=== PATIENT | male | born 1990 | race American Indian/Alaskan Native ===

== ENCOUNTER 2016-11-11 23:28 | Emergency (ER) | payer SELFPAY ==
[2016-11-12 00:05] VITALS: BP 143/103
== END 2016-11-12 00:29 | disposition left against medical advice (07) ==
LOC: DL.ED 23:28
DX: Z53.21 Procedure and treatment not carried out due to patient leaving prior to being seen by health care provider (principal)

== ENCOUNTER 2017-06-26 23:39 | Emergency (ER) | payer MEDICAID ==
[2017-06-26 23:50] VITALS: BP 164/105
[2017-06-27] MEDS ORDERED: Famotidine 20 MG/2 ML SDV IVPUSH ONE (00:32)
[2017-06-27] MEDS ORDERED: GI Cocktail Oral Solution 30 ML PO ONE (00:33)
[2017-06-27] MEDS ORDERED: LORazepam 2 MG/ML Syringe IVPUSH ONE (00:55)
[2017-06-27 00:56] LABS: CHLORIDE,CL 103 mmol/L (101-111); SODIUM,NA 137 mmol/L (135-145)
--- NOTE | 2017-06-27 02:59 | EDM.PDOC ---
ED HPI GENERAL MEDICAL PROBLEM - General Chief Complaint: Chest Pain Stated Complaint: CHEST PAIN Time Seen by Provider: 06/27/17 00:20 Source of Information: Reports: Patient History Limitations: Reports: No Limitations - History of Present Illness INITIAL COMMENTS - FREE TEXT/NARRATIVE: ED with girlfriend with c/o of everything hurting, chest, stomach, back and legs. Admits meth use 2 days ago and drinking today. No vomiting. Generalized Pain Score (Numeric/FACES): 8 - Related Data Allergies Allergy/AdvReac Type Severity Reaction Status Date / Time amoxicillin [Amoxicillin] Allergy Cannot Verified 11/11/16 23:56 Remember cephalexin monohydrate Allergy Cannot Verified 11/11/16 23:56 [From Keflex] Remember Penicillins Allergy Cannot Verified 11/11/16 23:56 Remember Home Meds: Home Meds Insulin Aspart [NovoLOG] 10 unit SQ TIDAC 09/02/13 [History] Lisinopril 20 mg PO DAILY 09/02/13 [History] Insulin Detemir [Levemir Flexpen] 50 units SQ DAILY 11/21/13 [History] Metoprolol Tartrate 100 mg PO DAILY 11/21/13 [History] Past Medical History - Past Health History Medical/Surgical History: Denies Medical/Surgical History HEENT History: Reports: Impaired Vision Cardiovascular History: Reports: Hypertension Respiratory History: Reports: Intubation, Previous, Other (See Below) Other Respiratory History: Pt was intubated previously to get him through detox Gastrointestinal History: Reports: Cirrhosis, Gastritis, GERD, GI Bleed, Pancreatitis, PUD Other Gastrointestinal History: varicies Genitourinary History: Reports: Renal Disease Other Genitourinary History: renal disease Musculoskeletal History: Reports: None Neurological History: Reports: None Psychiatric History: Reports: Addiction, Anxiety, Panic Attack Endocrine/Metabolic History: Reports: Diabetes, Type II, IDDM Hematologic History: Reports: Anemia Immunologic History: Reports: None Oncologic (Cancer) History: Reports: None Dermatologic History: Reports: None - Infectious Disease History Infectious Disease History: Reports: Chicken Pox - Past Surgical History GI Surgical History: Reports: Appendectomy, EGD, ERCP, Other (See Below) Musculoskeletal Surgical History: Reports: None Social & Family History - Family History Family Medical History: Noncontributory HEENT: Reports: None Cardiac: Reports: Afib, CAD, Heart Failure, High Cholesterol, Hypertension Other Cardiac Family History: mom's Respiratory: Reports: Asthma, COPD Other Respiratory Family Hisory: grandfather on mom's side. GI: Reports: Cholelithiasis, Cirrhosis, GI bleed, Hepatitis, Jaundice, Pancreatitis : Reports: Diabetic Nephropathy, Dialysis, Renal Disease/Insufficiency Musculoskeletal: Reports: Gout Neurological: Reports: CVA Psychiatric: Reports: Anxiety, Depression Endocrine/Metabolic: Reports: Diabetes, Type I, Diabetes, type II Other Endocrine/Metabolic Family History: Grandpa- Diabetes Type II ; Mother - Diabetes Type I Hematologic: Reports: Anemia - Tobacco Use Smoking Status *Q: Current Every Day Smoker Years of Tobacco use: 12 Packs/Tins Daily: 1 Used Tobacco, but Quit: No Month Tobacco Last Used: november Second Hand Smoke Exposure: Yes - Caffeine Use Caffeine Use: Reports: Coffee, Energy Drinks, Soda - Alcohol Use Days Per Week of Alcohol Use: 1 Number of Drinks Per Day: 2 Total Drinks Per Week: 2 - Recreational Drug Use Recreational Drug Use: Yes Drug Use in Last 12 Months: Yes Recreational Drug Type: Reports: Methamphetamine Recreational Drug Use Frequency: Socially Recreational Drug Last Use: meth - Sexual History Sexual History: Reports: Sexually Active, Single Partner - Living Situation & Occupation Living situation: Reports: with Significant Other, with Family Occupation: Employed ED ROS GENERAL - Review of Systems Review Of Systems: See Below Constitutional: Reports: No Symptoms HEENT: Reports: No Symptoms Respiratory: Reports: No Symptoms Cardiovascular: Reports: Chest Pain Endocrine: Reports: Fatigue GI/Abdominal: Reports: Abdominal Pain. Denies: Nausea, Vomiting : Reports: No Symptoms Musculoskeletal: Reports: Leg Pain Skin: Reports: No Symptoms Neurological: Reports: No Symptoms Psychiatric: Reports: No Symptoms ED EXAM, GENERAL - Physical Exam Exam: See Below Exam Limited By: No Limitations General Appearance: Alert, Anxious, Obese Eye Exam: Bilateral Eye: EOMI, PERRL (6mm) Ears: Normal External Exam Throat/Mouth: Normal Inspection, Inflammation. No: Normal Lips (pierced) Head: Normocephalic Neck: Full Range of Motion Respiratory/Chest: No Respiratory Distress, Lungs Clear Cardiovascular: Normal Peripheral Pulses GI/Abdominal: Normal Bowel Sounds, Soft, Tender (epigastric) Back Exam: Normal Inspection Extremities: Normal Inspection, Normal Range of Motion Neurological: Alert, Oriented Psychiatric: Anxious, Other (darting eye movments, easily startled, poor eye contact, mumbles ) Skin Exam: Warm, Dry, Intact, Normal Color EKG INTERPRETATION Rhythm: NSR Course - Vital Signs Last Recorded V/S: Last Vital Signs Temp 98.6 F 06/26/17 23:49 Pulse 89 06/26/17 23:49 Resp 20 06/26/17 23:49 BP 164/105 H 06/26/17 23:49 Pulse Ox 100 06/26/17 23:49 - Orders/Labs/Meds Orders: Active Orders 24 hr Category Date Time Status EKG Documentation Completion [RC] ROUTINE Care 06/26/17 23:45 Active Glucose [Blood Glucose Check, Bedside] [RC] ONETIME Care 06/27/17 00:54 Active Labs: Laboratory Tests 06/27/17 06/27/17 06/27/17 Range/Units 00:00 00:00 00:52 WBC 9.5 (5.0-10.0) 10^3/uL RBC 5.23 (4.6-6.2) 10^6/uL Hgb 15.9 (14.0-18.0) g/dL Hct 45.5 (40.0-54.0) % MCV 87.0 (80-100) fL MCH 30.4 (27.0-34.0) pg MCHC 34.9 (33.0-35.0) g/dL Plt Count 231 (150-450) 10^3/uL Neut % (Auto) 64.3 (42.2-75.2) % Lymph % (Auto) 27.7 (20.5-50.1) % [place] % (Auto) 7.2 (2-8) % Eos % (Auto) 0.7 L (1.0-3.0) % Baso % (Auto) 0.1 (0.0-1.0) % Sodium 137 (135-145) mmol/L Potassium 3.4 L (3.6-5.0) mmol/L Chloride 103 (101-111) mmol/L Carbon Dioxide 23.0 (21.0-31.0) mmol/L Anion Gap 14.4 BUN 6 L (7-18) mg/dL Creatinine 0.7 (0.6-1.3) mg/dL Est Cr Clr Drug Dosing 177.56 mL/min Estimated GFR (MDRD) > 60 BUN/Creatinine Ratio 8.57 Glucose 215 H (74-105) mg/dL POC Glucose (70-105) mg/dl Calcium 9.6 (8.4-10.2) mg/dl Total Bilirubin 0.7 (0.2-1.0) mg/dL AST 16 (10-42) IU/L ALT 10 (10-60) IU/L Alkaline Phosphatase 78 (42-121) IU/L Troponin I < 0.02 (0.00-0.02) ng/ml Total Protein 7.7 (6.7-8.2) g/dl Albumin 4.5 (3.2-5.5) g/dl Globulin 3.2 Albumin/Globulin Ratio 1.41 Amylase 18 L (28-100) U/L Lipase 15 L (22-51) U/L Urine Opiates Screen Negative (NEGATIVE) Ur Oxycodone Screen Negative (NEGATIVE) Urine Methadone Screen Negative (NEGATIVE) Ur Barbiturates Screen Negative (NEGATIVE) U Tricyclic Antidepress Negative (NEGATIVE) Ur Phencyclidine Scrn Negative (NEGATIVE) Ur Amphetamine Screen Negative (NEGATIVE) U Methamphetamines Scrn Positive H (NEGATIVE) Urine MDMA Screen Negative (NEGATIVE) U Benzodiazepines Scrn Negative (NEGATIVE) Urine Cocaine Screen Negative (NEGATIVE) U Marijuana (THC) Screen Negative (NEGATIVE) 06/27/17 Range/Units 01:04 WBC (5.0-10.0) 10^3/uL RBC (4.6-6.2) 10^6/uL Hgb (14.0-18.0) g/dL Hct (40.0-54.0) % MCV (80-100) fL MCH (27.0-34.0) pg MCHC (33.0-35.0) g/dL Plt Count (150-450) 10^3/uL Neut % (Auto) (42.2-75.2) % Lymph % (Auto) (20.5-50.1) % [place] % (Auto) (2-8) % Eos % (Auto) (1.0-3.0) % Baso % (Auto) (0.0-1.0) % Sodium (135-145) mmol/L Potassium (3.6-5.0) mmol/L Chloride (101-111) mmol/L Carbon Dioxide (21.0-31.0) mmol/L Anion Gap BUN (7-18) mg/dL Creatinine (0.6-1.3) mg/dL Est Cr Clr Drug Dosing mL/min Estimated GFR (MDRD) BUN/Creatinine Ratio Glucose (74-105) mg/dL POC Glucose 197 H (70-105) mg/dl Calcium (8.4-10.2) mg/dl Total Bilirubin (0.2-1.0) mg/dL AST (10-42) IU/L ALT (10-60) IU/L Alkaline Phosphatase (42-121) IU/L Troponin I (0.00-0.02) ng/ml Total Protein (6.7-8.2) g/dl Albumin (3.2-5.5) g/dl Globulin Albumin/Globulin Ratio Amylase (28-100) U/L Lipase (22-51) U/L Urine Opiates Screen (NEGATIVE) Ur Oxycodone Screen (NEGATIVE) Urine Methadone Screen (NEGATIVE) Ur Barbiturates Screen (NEGATIVE) U Tricyclic Antidepress (NEGATIVE) Ur Phencyclidine Scrn (NEGATIVE) Ur Amphetamine Screen (NEGATIVE) U Methamphetamines Scrn (NEGATIVE) Urine MDMA Screen (NEGATIVE) U Benzodiazepines Scrn (NEGATIVE) Urine Cocaine Screen (NEGATIVE) U Marijuana (THC) Screen (NEGATIVE) Meds: Medications Discontinued Medications Generic Name Dose Route Start Last Admin Trade Name Freq PRN Reason Stop Dose Admin Al Hydroxide/Mg Hydroxide 30 ml 06/27/17 00:33 06/27/17 00:38 Gi Cocktail PO 06/27/17 00:34 30 ml ONETIME ONE Administration Famotidine 20 mg 06/27/17 00:32 06/27/17 00:38 Pepcid IVPUSH 06/27/17 00:33 20 mg ONETIME ONE Administration Lorazepam 1 mg 06/27/17 00:55 06/27/17 01:01 Ativan IVPUSH 06/27/17 00:56 1 mg ONETIME ONE Administration - Re-Assessments/Exams Free Text/Narrative Re-Assessment/Exam: Pacing in room on admission, frequent glancing in to mirror , Calmer at discharge, able to sit with girlfriend. Paranoid appearance. Non threatening. Departure - Departure Time of Disposition: 01:20 Disposition: Home, Self-Care 01 Condition: Fair Clinical Impression: Anxiety, Paranoia, Methamphetamine abuse Abdominal pain Qualifiers: Abdominal location: generalized Qualified Code(s): R10.84 - Generalized abdominal pain - Discharge Information Instructions: Stimulant Use Disorder-Methamphetamines Forms: ED Department Discharge Additional Instructions: Stop using drugs bland diet increase fluid intake no alcohol - My Orders Last 24 Hours: My Active Orders 06/26/17 23:45 EKG Documentation Completion [RC] ROUTINE 06/27/17 00:54 Glucose [Blood Glucose Check, Bedside] [RC] ONETIME - Assessment/Plan Last 24 Hours: My Active Orders 06/26/17 23:45 EKG Documentation Completion [RC] ROUTINE 06/27/17 00:54 Glucose [Blood Glucose Check, Bedside] [RC] ONETIME
--- NOTE | 2017-07-01 10:50 | EKG ---
06/26/2017 - MAGALYS KO - FINDINGS: I reviewed the EKG and agree with the machine's reading. [facility] /[id number]
== END 2017-06-27 01:20 | disposition home or self-care (01) ==
LOC: DL.ED 23:39
DX: F41.9 Anxiety disorder, unspecified (principal); F15.10 Other stimulant abuse, uncomplicated; F22 Delusional disorders; R10.84 Generalized abdominal pain; F17.210 Nicotine dependence, cigarettes, uncomplicated; E11.9 Type 2 diabetes mellitus without complications; I10 Essential (primary) hypertension; Z88.1 Allergy status to other antibiotic agents; Z88.0 Allergy status to penicillin; Z79.4 Long term (current) use of insulin; Z79.899 Other long term (current) drug therapy
CPT/HCPCS: 36415; 80053; 80305; 82150; 82962; 83690; 84484; 85025; 93005; 96374; 96375; 99283; A9270; J2060; S0028

== ENCOUNTER 2017-10-18 23:02 | Emergency (ER) | payer SELFPAY ==
[2017-10-18 23:18] VITALS: BP 151/102
[2017-10-18] MEDS ORDERED: Pantoprazole 40 MG in Sodium Chloride 0.9% 100 ML IV SCH (23:45)
[2017-10-18] MEDS ORDERED: Octreotide 500 MCG in Sodium Chloride 0.9% 250 ML IV SCH (23:45)
[2017-10-18] MEDS ORDERED: Octreotide 100 MCG/ML SDV IVPUSH ONE (23:48)
[2017-10-18] MEDS ORDERED: Ondansetron 8 MG in Sodium Chloride 0.9% 50 ML IV ONE (23:49)
[2017-10-18] MEDS ORDERED: Pantoprazole 40 MG Vial IVPUSH ONE (23:49)
[2017-10-18] MEDS ORDERED: Sodium Chloride 0.9% 1,000 ML IV ONE (23:50)
[2017-10-18 23:54] LABS: CHLORIDE,CL 104 mmol/L (101-111); SODIUM,NA 138 mmol/L (135-145)
[2017-10-18] MEDS ORDERED: LORazepam 2 MG/ML Syringe IVPUSH ONE (23:54)
[2017-10-19] MEDS ORDERED: Ondansetron 4 MG/2 ML SDV IV ONE (00:28)
--- NOTE | 2017-10-19 00:31 | EDM.PDOC ---
ED HPI GENERAL MEDICAL PROBLEM - General Chief Complaint: Drug or Alcohol Abuse Stated Complaint: CHEST PAIN [id number] Time Seen by Provider: 10/18/17 23:35 Source of Information: Reports: Patient, RN, RN Notes Reviewed - History of Present Illness INITIAL COMMENTS - FREE TEXT/NARRATIVE: Pt presents to the ER with c/o vomiting. He states he has not drank alcohol in over 9 months. He states he "fell off the wagon" and has drank for the past three days with the last drink being yesterday. Patient has a history of bleeding esophageal varices. Upon arrival patient is very agitated and consistently vomiting. Pt c/o pain in the abdomen, up through the chest and into the shoulders. Onset: Today, Sudden Left Shoulder Pain Score (Numeric/FACES): 6 - Related Data Allergies Allergy/AdvReac Type Severity Reaction Status Date / Time amoxicillin [Amoxicillin] Allergy Cannot Verified 10/18/17 23:18 Remember cephalexin monohydrate Allergy Cannot Verified 10/18/17 23:18 [From Keflex] Remember Penicillins Allergy Cannot Verified 10/18/17 23:18 Remember Home Meds: Home Meds Insulin Aspart [NovoLOG] 10 unit SQ TIDAC 09/02/13 [History] Lisinopril 20 mg PO DAILY 09/02/13 [History] Insulin Detemir [Levemir Flexpen] 50 units SQ DAILY 11/21/13 [History] Metoprolol Tartrate 100 mg PO DAILY 11/21/13 [History] Past Medical History - Past Health History Medical/Surgical History: Denies Medical/Surgical History HEENT History: Reports: Impaired Vision Cardiovascular History: Reports: Hypertension Respiratory History: Reports: Intubation, Previous, Other (See Below) Other Respiratory History: Pt was intubated previously to get him through detox Gastrointestinal History: Reports: Cirrhosis, Gastritis, GERD, GI Bleed, Pancreatitis, PUD Other Gastrointestinal History: varicies Genitourinary History: Reports: Renal Disease Other Genitourinary History: renal disease Musculoskeletal History: Reports: None Neurological History: Reports: None Psychiatric History: Reports: Addiction, Anxiety, Panic Attack Endocrine/Metabolic History: Reports: Diabetes, Type II, IDDM Hematologic History: Reports: Anemia Immunologic History: Reports: None Oncologic (Cancer) History: Reports: None Dermatologic History: Reports: None - Infectious Disease History Infectious Disease History: Reports: Chicken Pox - Past Surgical History GI Surgical History: Reports: Appendectomy, EGD, ERCP, Other (See Below) Musculoskeletal Surgical History: Reports: None Social & Family History - Family History Family Medical History: Noncontributory HEENT: Reports: None Cardiac: Reports: Afib, CAD, Heart Failure, High Cholesterol, Hypertension Other Cardiac Family History: mom's Respiratory: Reports: Asthma, COPD Other Respiratory Family Hisory: grandfather on mom's side. GI: Reports: Cholelithiasis, Cirrhosis, GI bleed, Hepatitis, Jaundice, Pancreatitis : Reports: Diabetic Nephropathy, Dialysis, Renal Disease/Insufficiency Musculoskeletal: Reports: Gout Neurological: Reports: CVA Psychiatric: Reports: Anxiety, Depression Endocrine/Metabolic: Reports: Diabetes, Type I, Diabetes, type II Other Endocrine/Metabolic Family History: Grandpa- Diabetes Type II ; Mother - Diabetes Type I Hematologic: Reports: Anemia - Tobacco Use Smoking Status *Q: Current Every Day Smoker Years of Tobacco use: 10 Packs/Tins Daily: 0.5 Used Tobacco, but Quit: No Month/Year Tobacco Last Used: november Second Hand Smoke Exposure: Yes - Caffeine Use Caffeine Use: Reports: Coffee, Energy Drinks, Soda - Alcohol Use Days Per Week of Alcohol Use: 1 Number of Drinks Per Day: 2 Total Drinks Per Week: 2 - Recreational Drug Use Recreational Drug Use: Yes Drug Use in Last 12 Months: Yes Recreational Drug Type: Reports: Methamphetamine Other Recreational Drug Type: last use 9 months ago Recreational Drug Use Frequency: Socially Recreational Drug Last Use: meth - Sexual History Sexual History: Reports: Sexually Active, Single Partner - Living Situation & Occupation Living situation: Reports: with Significant Other, with Family Occupation: Employed ED ROS GENERAL - Review of Systems Review Of Systems: ROS reveals no pertinent complaints other than HPI. ED EXAM, GI/ABD - Physical Exam Exam: See Below Exam Limited By: Other (vomiting) General Appearance: Severe Distress, Active Emesis Eyes: Bilateral: Normal Appearance (Injected sclera bilaterally), EOMI Ears: Normal External Exam, Hearing Grossly Normal Nose: Normal Inspection, Normal Mucosa, No Blood Throat/Mouth: Normal Inspection, Normal Lips, Normal Teeth, Normal Gums, Normal Oropharynx, Normal Voice, No Airway Compromise Head: Atraumatic, Normocephalic Neck: Normal Inspection, Supple, Non-Tender, Full Range of Motion Respiratory/Chest: No Respiratory Distress, Lungs Clear, Normal Breath Sounds, No Accessory Muscle Use, Chest Non-Tender Cardiovascular: Normal Peripheral Pulses, Regular Rate, Rhythm, No Edema, No Gallop, No JVD, No Murmur, No Rub, Tachycardia GI/Abdominal Exam: Normal Bowel Sounds, Soft, Tender (Male) Exam: Deferred Rectal (Males) Exam: Deferred Back Exam: Normal Inspection, Full Range of Motion, NT Extremities: Normal Inspection, Normal Range of Motion, Non-Tender, Normal Capillary Refill, No Pedal Edema Neurological: Alert, Oriented, CN II-XII Intact, Normal Cognition, Normal Gait, Normal Reflexes, No Motor/Sensory Deficits Psychiatric: Anxious, Tearful Skin Exam: Warm, Dry, Intact, Normal Color, No Rash Lymphatic: No Adenopathy Course - Vital Signs Last Recorded V/S: Last Vital Signs Temp 98.7 F 10/18/17 23:13 Pulse 127 H 10/18/17 23:13 Resp 24 H 10/18/17 23:13 BP 151/102 H 10/18/17 23:13 Pulse Ox 99 10/18/17 23:13 - Orders/Labs/Meds Orders: Active Orders 24 hr Category Date Time Status DRUG SCREEN URINE BIORAD [URCHEM] Stat Lab 10/18/17 23:34 Ordered UA W/MICROSCOPIC [URIN] Stat Lab 10/18/17 23:34 Ordered Labs: Laboratory Tests 10/18/17 10/18/17 Range/Units 23:30 23:30 WBC 8.1 (5.0-10.0) 10^3/uL RBC 4.70 (4.6-6.2) 10^6/uL Hgb 14.4 D (14.0-18.0) g/dL Hct 41.2 (40.0-54.0) % MCV 87.7 (80-100) fL MCH 30.6 (27.0-34.0) pg MCHC 35.0 (33.0-35.0) g/dL Plt Count 233 (150-450) 10^3/uL Neut % (Auto) 43.5 (42.2-75.2) % Lymph % (Auto) 48.9 (20.5-50.1) % [place] % (Auto) 6.3 (2-8) % Eos % (Auto) 1.1 (1.0-3.0) % Baso % (Auto) 0.2 (0.0-1.0) % Sodium 138 (135-145) mmol/L Potassium 3.4 L (3.6-5.0) mmol/L Chloride 104 (101-111) mmol/L Carbon Dioxide 22.0 (21.0-31.0) mmol/L Anion Gap 15.4 BUN 6 L (7-18) mg/dL Creatinine 0.7 (0.6-1.3) mg/dL Est Cr Clr Drug Dosing 177.56 mL/min Estimated GFR (MDRD) > 60 BUN/Creatinine Ratio 8.57 Glucose 229 H (74-105) mg/dL Calcium 8.6 (8.4-10.2) mg/dl Total Bilirubin 0.6 (0.2-1.0) mg/dL AST 53 H (10-42) IU/L ALT 37 (10-60) IU/L Alkaline Phosphatase 86 (42-121) IU/L Total Protein 7.3 (6.7-8.2) g/dl Albumin 4.2 (3.2-5.5) g/dl Globulin 3.1 Albumin/Globulin Ratio 1.35 Amylase 33 (28-100) U/L Lipase 14 L (22-51) U/L Ethyl Alcohol 45 mg/dL Meds: Medications Discontinued Medications Generic Name Dose Route Start Last Admin Trade Name Freq PRN Reason Stop Dose Admin Octreotide Acetate 500 mcg/ 255 mls @ 12.5 mls/hr 10/18/17 23:45 Sodium Chloride IV ASDIRECTED VINAY Pantoprazole Sodium 40 mg/ 100 mls @ 20 mls/hr 10/18/17 23:45 10/19/17 00:51 Sodium Chloride IV 20 mls/hr .CONTINUOS VINAY Administration Sodium Chloride 1,000 mls @ 999 mls/hr 10/18/17 23:50 10/19/17 00:12 Normal Saline IV 10/19/17 00:50 999 mls/hr .BOLUS ONE Administration Octreotide Acetate 500 mcg/ 255 mls @ 12.5 mls/hr 10/19/17 00:41 10/19/17 00: 58 Sodium Chloride IV 10/19/17 21:04 12.5 mls/hr ONETIME ONE Administration Pantoprazole Sodium 40 mg/ 100 mls @ 20 mls/hr 10/19/17 00:42 10/19/17 00:52 Sodium Chloride IV 10/19/17 05:41 Not Given ONETIME ONE Lorazepam 2 mg 10/18/17 23:54 10/19/17 00:13 Ativan IVPUSH 10/18/17 23:55 2 mg ONETIME ONE Administration Octreotide Acetate 50 mcg 10/18/17 23:48 10/19/17 00:18 Sandostatin IVPUSH 10/18/17 23:49 50 mcg ONETIME ONE Administration Ondansetron HCl 4 mg 10/19/17 00:28 10/19/17 00:36 Zofran IV 10/19/17 00:29 4 mg ONETIME ONE Administration Pantoprazole Sodium 80 mg 10/18/17 23:49 10/19/17 00:28 Protonix Iv IVPUSH 10/18/17 23:50 80 mg .BOLUS ONE Administration Departure - Departure Time of Disposition: 00:29 Disposition: DC/Tfer to Acute Hospital 02 Condition: Poor, Serious Clinical Impression: Vomiting, History of esophageal varices with bleeding Alcohol withdrawal syndrome Qualifiers: Complication of substance-induced condition: with unspecified complication Qualified Code(s): F10.239 - Alcohol dependence with withdrawal, unspecified Alcoholic gastritis Qualifiers: Chronicity: acute Gastritis bleeding: without bleeding Qualified Code(s): K29.20 - Alcoholic gastritis without bleeding - Discharge Information Referrals: PCP,Unobtain [Primary Care Provider] - Forms: ED Department Discharge, Interfacility Transfer EMTALA - My Orders Last 24 Hours: My Active Orders 10/18/17 23:34 DRUG SCREEN URINE BIORAD [URCHEM] Stat UA W/MICROSCOPIC [URIN] Stat - Assessment/Plan Last 24 Hours: My Active Orders 10/18/17 23:34 DRUG SCREEN URINE BIORAD [URCHEM] Stat UA W/MICROSCOPIC [URIN] Stat
[2017-10-19] MEDS ORDERED: Octreotide 500 MCG in Sodium Chloride 0.9% 250 ML IV ONE (00:41)
[2017-10-19] MEDS ORDERED: Pantoprazole 40 MG in Sodium Chloride 0.9% 100 ML IV ONE (00:42)
== END 2017-10-19 01:10 ==
LOC: DL.ED 23:02
DX: F10.239 Alcohol dependence with withdrawal, unspecified (principal); K29.20 Alcoholic gastritis without bleeding; I10 Essential (primary) hypertension; E11.9 Type 2 diabetes mellitus without complications; F17.210 Nicotine dependence, cigarettes, uncomplicated; Z88.1 Allergy status to other antibiotic agents; Z88.0 Allergy status to penicillin; Z79.4 Long term (current) use of insulin; Z79.899 Other long term (current) drug therapy; Z87.19 Personal history of other diseases of the digestive system; Y90.2 Blood alcohol level of 40-59 mg/100 ml
CPT/HCPCS: 36415; 80053; 82150; 83690; 85025; 96361; 96365; 96375; 96376; 99284; C9113; G0480; J2060; J2354; J2405; J7030; J7050; 99285

== ENCOUNTER 2018-07-21 23:47 | Emergency (ER) | payer MEDICAID ==
[2018-07-21] MEDS ORDERED: Lactated Ringers 1,000 ML IV ONE (23:48)
[2018-07-21] MEDS ORDERED: Activated Charcoal/Water Susp 50 GM/240 ML Tube PO ONE (23:55)
[2018-07-21] MEDS ORDERED: Acetylcysteine 20% 200 MG/ML 30 ML SDV PO ONE (23:56)
[2018-07-21 23:59] VITALS: BP 127/78
[2018-07-22] MEDS ORDERED: Ondansetron 4 MG/2 ML SDV IV ONE (00:03)
[2018-07-22 00:21] LABS: ANION GAP 16.7; CHLORIDE,CL 101 mmol/L (101-111); SODIUM,NA 137 mmol/L (135-145)
[2018-07-22 00:22] LABS: ACETAMINOPHEN < 10.0 ug/mL
--- NOTE | 2018-07-22 00:43 | EDM.PDOCBH ---
ED HPI GENERAL MEDICAL PROBLEM - General Chief Complaint: Drug or Alcohol Abuse Stated Complaint: AMBULANCE-UNKNOWN Time Seen by Provider: 07/21/18 23:50 Source of Information: Reports: Patient, EMS, EMS Notes Reviewed, RN, RN Notes Reviewed History Limitations: Reports: Altered Mental Status - History of Present Illness INITIAL COMMENTS - FREE TEXT/NARRATIVE: Pt to ER per [facility] with c/o overdose of Tylenol Extra Strength, Tylenol PM, and Gabapentin. EMS reports they were told the patient took 2 Gabapentin around 2029 , and a "handful of Tylenol ES and Tylenol PM" about 2229. Patient admits to using Meth and drinking a pint of [place] Whiskey. When asked if he was trying to hurt himself by taking the pills, the patient nods his head yes. He states he has had previous suicide attempts in the past by cutting and taking sleeping pills. Onset: Today, Sudden Lower Back Pain Score (Numeric/FACES): 4 - Related Data Allergies Allergy/AdvReac Type Severity Reaction Status Date / Time amoxicillin [Amoxicillin] Allergy Cannot Verified 10/18/17 23:18 Remember cephalexin monohydrate Allergy Cannot Verified 10/18/17 23:18 [From Keflex] Remember Penicillins Allergy Cannot Verified 10/18/17 23:18 Remember Home Meds: Home Meds Insulin Aspart [NovoLOG] 10 unit SQ TIDAC 09/02/13 [History] Lisinopril 20 mg PO DAILY 09/02/13 [History] Insulin Detemir [Levemir Flexpen] 50 units SQ DAILY 11/21/13 [History] Metoprolol Tartrate 100 mg PO DAILY 11/21/13 [History] Past Medical History - Past Health History Medical/Surgical History: Denies Medical/Surgical History HEENT History: Reports: Impaired Vision Cardiovascular History: Reports: Hypertension Respiratory History: Reports: Intubation, Previous, Other (See Below) Other Respiratory History: Pt was intubated previously to get him through detox Gastrointestinal History: Reports: Cirrhosis, Gastritis, GERD, GI Bleed, Pancreatitis, PUD Other Gastrointestinal History: varicies Genitourinary History: Reports: Renal Disease Other Genitourinary History: renal disease Musculoskeletal History: Reports: None Neurological History: Reports: None Psychiatric History: Reports: Addiction, Anxiety, Panic Attack Endocrine/Metabolic History: Reports: Diabetes, Type II, IDDM Hematologic History: Reports: Anemia Immunologic History: Reports: None Oncologic (Cancer) History: Reports: None Dermatologic History: Reports: None - Infectious Disease History Infectious Disease History: Reports: Chicken Pox - Past Surgical History GI Surgical History: Reports: Appendectomy, EGD, ERCP, Other (See Below) Musculoskeletal Surgical History: Reports: None Social & Family History - Family History Family Medical History: Noncontributory HEENT: Reports: None Cardiac: Reports: Afib, CAD, Heart Failure, High Cholesterol, Hypertension Other Cardiac Family History: mom's Respiratory: Reports: Asthma, COPD Other Respiratory Family Hisory: grandfather on mom's side. GI: Reports: Cholelithiasis, Cirrhosis, GI bleed, Hepatitis, Jaundice, Pancreatitis : Reports: Diabetic Nephropathy, Dialysis, Renal Disease/Insufficiency Musculoskeletal: Reports: Gout Neurological: Reports: CVA Psychiatric: Reports: Anxiety, Depression Endocrine/Metabolic: Reports: Diabetes, Type I, Diabetes, type II Other Endocrine/Metabolic Family History: Grandpa- Diabetes Type II ; Mother - Diabetes Type I Hematologic: Reports: Anemia - Tobacco Use Smoking Status *Q: Current Status Unknown Second Hand Smoke Exposure: Yes - Caffeine Use Caffeine Use: Reports: Tea - Alcohol Use Date of Last Drink: 07/21/18 - Recreational Drug Use Recreational Drug Use: Yes Recreational Drug Type: Reports: Marijuana/Hashish, Methamphetamine - Sexual History Sexual History: Reports: Sexually Active, Single Partner - Living Situation & Occupation Living situation: Reports: with Significant Other, with Family Occupation: Employed ED ROS GENERAL - Review of Systems Review Of Systems: ROS reveals no pertinent complaints other than HPI. ED EXAM, BEHAVIORAL HEALTH - Physical Exam Exam: See Below Exam Limited By: Altered Mental Status General Appearance: Lethargic Eye Exam: Bilateral Eye: PERRL (2 sluggish) Ears: Normal External Exam, Hearing Grossly Normal Nose: Other (White powder substance around the nose) Throat/Mouth: Normal Inspection, Normal Lips, Normal Teeth, Normal Gums, Normal Oropharynx, Normal Voice, No Airway Compromise Head: Atraumatic, Normocephalic Neck: Normal Inspection, Supple, Non-Tender, Full Range of Motion Respiratory/Chest: No Respiratory Distress, Lungs Clear, Normal Breath Sounds, No Accessory Muscle Use, Chest Non-Tender Cardiovascular: Normal Peripheral Pulses, Regular Rate, Rhythm, No Edema, No Gallop, No JVD, No Murmur, No Rub GI/Abdominal: Normal Bowel Sounds, Soft, No Organomegaly, No Distention, Tender (RUQ) (Male) Exam: Deferred Rectal (Males) Exam: Deferred Back Exam: Normal Inspection, Full Range of Motion Extremities: Normal Inspection, Normal Range of Motion, Non-Tender, Normal Capillary Refill, No Pedal Edema Neurological: Inattentive, Slow Response to Commands Psychiatric: Depressed Mood, Flat Affect, Tearful, Inattentive, Poor Eye Contact , Suicidal Thoughts Skin Exam: Warm, Dry, Intact, Normal color, No rash EKG INTERPRETATION EKG Date: 07/21/18 Time: 23:57 Rhythm: NSR Rate (Beats/Min): 99 [place]: Normal P-Wave: Present QRS: Normal ST-T: Normal QT: Normal Comparison: No Change COURSE, BEHAVIORAL HEALTH COMP - Course Vital Signs: Last Vital Signs Temp 97.5 F 07/21/18 23:52 Pulse 101 H 07/21/18 23:52 Resp 20 07/21/18 23:52 BP 127/78 07/21/18 23:52 Pulse Ox 97 07/21/18 23:52 Orders, Labs, Meds: Active Orders 24 hr Category Date Time Status EKG Documentation Completion [RC] STAT Care 07/21/18 23:47 Active Laboratory Tests 07/21/18 07/21/18 07/22/18 Range/Units 23:52 23:52 01:34 WBC 10.3 H (5.0-10.0) 10^3/uL RBC 4.70 (4.6-6.2) 10^6/uL Hgb 14.4 (14.0-18.0) g/dL Hct 41.9 (40.0-54.0) % MCV 89.1 (80-100) fL MCH 30.6 (27.0-34.0) pg MCHC 34.4 (33.0-35.0) g/dL Plt Count 265 (150-450) 10^3/uL Neut % (Auto) 56.9 (42.2-75.2) % Lymph % (Auto) 35.4 (20.5-50.1) % [place] % (Auto) 6.2 (2-8) % Eos % (Auto) 1.3 (1.0-3.0) % Baso % (Auto) 0.2 (0.0-1.0) % Sodium 137 (135-145) mmol/L Potassium 3.7 (3.6-5.0) mmol/L Chloride 101 (101-111) mmol/L Carbon Dioxide 23.0 (21.0-31.0) mmol/L Anion Gap 16.7 BUN 8 (7-18) mg/dL Creatinine 0.8 (0.6-1.3) mg/dL Est Cr Clr Drug Dosing 153.97 mL/min Estimated GFR (MDRD) > 60 BUN/Creatinine Ratio 10.00 Glucose 358 H (74-105) mg/dL Calcium 8.6 (8.4-10.2) mg/dl Total Bilirubin 0.3 (0.2-1.0) mg/dL AST 16 (10-42) IU/L ALT 11 (10-60) IU/L Alkaline Phosphatase 99 (42-121) IU/L Total Protein 6.7 (6.7-8.2) g/dl Albumin 3.9 (3.2-5.5) g/dl Globulin 2.8 Albumin/Globulin Ratio 1.39 Urine Color (YELLOW) Urine Appearance (CLEAR) Urine pH (5.0-9.0) Ur Specific [place] (1.005-1.030) Urine Protein (NEGATIVE) Urine Glucose (UA) (NEGATIVE) Urine Ketones (NEGATIVE) Urine Occult Blood (NEGATIVE) Urine Nitrite (NEGATIVE) Urine Bilirubin (NEGATIVE) Urine Urobilinogen (0.2-1.0) mg/dL Ur Leukocyte Esterase (NEGATIVE) Salicylates < 4.0 mg/dL Urine Opiates Screen Negative (NEGATIVE) Ur Oxycodone Screen Negative (NEGATIVE) Urine Methadone Screen Negative (NEGATIVE) Acetaminophen < 10.0 ug/mL Ur Barbiturates Screen Negative (NEGATIVE) U Tricyclic Antidepress Negative (NEGATIVE) Ur Phencyclidine Scrn Negative (NEGATIVE) Ur Amphetamine Screen Negative (NEGATIVE) U Methamphetamines Scrn Positive H (NEGATIVE) Urine MDMA Screen Negative (NEGATIVE) U Benzodiazepines Scrn Negative (NEGATIVE) Urine Cocaine Screen Negative (NEGATIVE) U Marijuana (THC) Screen Negative (NEGATIVE) Ethyl Alcohol 194 mg/dL 07/22/18 Range/Units 01:34 WBC (5.0-10.0) 10^3/uL RBC (4.6-6.2) 10^6/uL Hgb (14.0-18.0) g/dL Hct (40.0-54.0) % MCV (80-100) fL MCH (27.0-34.0) pg MCHC (33.0-35.0) g/dL Plt Count (150-450) 10^3/uL Neut % (Auto) (42.2-75.2) % Lymph % (Auto) (20.5-50.1) % [place] % (Auto) (2-8) % Eos % (Auto) (1.0-3.0) % Baso % (Auto) (0.0-1.0) % Sodium (135-145) mmol/L Potassium (3.6-5.0) mmol/L Chloride (101-111) mmol/L Carbon Dioxide (21.0-31.0) mmol/L Anion Gap BUN (7-18) mg/dL Creatinine (0.6-1.3) mg/dL Est Cr Clr Drug Dosing mL/min Estimated GFR (MDRD) BUN/Creatinine Ratio Glucose (74-105) mg/dL Calcium (8.4-10.2) mg/dl Total Bilirubin (0.2-1.0) mg/dL AST (10-42) IU/L ALT (10-60) IU/L Alkaline Phosphatase (42-121) IU/L Total Protein (6.7-8.2) g/dl Albumin (3.2-5.5) g/dl Globulin Albumin/Globulin Ratio Urine Color Yellow (YELLOW) Urine Appearance Clear (CLEAR) Urine pH 6.0 (5.0-9.0) Ur Specific [place] 1.010 (1.005-1.030) Urine Protein Negative (NEGATIVE) Urine Glucose (UA) 500 H (NEGATIVE) Urine Ketones Negative (NEGATIVE) Urine Occult Blood Negative (NEGATIVE) Urine Nitrite Negative (NEGATIVE) Urine Bilirubin Negative (NEGATIVE) Urine Urobilinogen 0.2 (0.2-1.0) mg/dL Ur Leukocyte Esterase Negative (NEGATIVE) Salicylates mg/dL Urine Opiates Screen (NEGATIVE) Ur Oxycodone Screen (NEGATIVE) Urine Methadone Screen (NEGATIVE) Acetaminophen ug/mL Ur Barbiturates Screen (NEGATIVE) U Tricyclic Antidepress (NEGATIVE) Ur Phencyclidine Scrn (NEGATIVE) Ur Amphetamine Screen (NEGATIVE) U Methamphetamines Scrn (NEGATIVE) Urine MDMA Screen (NEGATIVE) U Benzodiazepines Scrn (NEGATIVE) Urine Cocaine Screen (NEGATIVE) U Marijuana (THC) Screen (NEGATIVE) Ethyl Alcohol mg/dL Medications Discontinued Medications Generic Name Dose Route Start Last Admin Trade Name Naomi PRN Reason Stop Dose Admin Acetylcysteine 14,606 mg 07/21/18 23:56 07/22/18 00:19 Acetadote 20% PO 07/21/18 23:57 14,606 mg ONETIME ONE Administration Charcoal 50 gm 07/21/18 23:55 07/22/18 00:14 Actidose-Aqua PO 07/21/18 23:56 50 gm ONETIME ONE Administration Lactated Ringer's 1,000 mls @ 999 mls/hr 07/21/18 23:48 07/22/18 00:00 Ringers, Lactated IV 07/22/18 00:48 999 mls/hr .BOLUS ONE Administration Sodium Chloride 1,000 mls @ 150 mls/hr 07/22/18 01:25 07/22/18 01:35 Normal Saline IV 07/22/18 08:04 150 mls/hr .BOLUS ONE Administration Ondansetron HCl 4 mg 07/22/18 00:03 07/22/18 00:14 Zofran IV 07/22/18 00:04 4 mg ONETIME ONE Administration Departure - Departure Time of Disposition: 01:21 Disposition: DC/Tfer to Acute Hospital 02 Condition: Fair, Serious Clinical Impression: Suicidal ideation, Drug use Alcohol intoxication Qualifiers: Complication of substance-induced condition: uncomplicated Qualified Code(s): F10.920 - Alcohol use, unspecified with intoxication, uncomplicated Acetaminophen overdose Qualifiers: Encounter type: initial encounter Injury intent: intentional self-harm Qualified Code(s): T39.1X2A - Poisoning by 4-Aminophenol derivatives, intentional self-harm, initial encounter - Discharge Information *PRESCRIPTION DRUG MONITORING PROGRAM REVIEWED*: No *COPY OF PRESCRIPTION DRUG MONITORING REPORT IN PATIENT LAURO: No Referrals: PCP,Unobtain [Primary Care Provider] - Forms: ED Department Discharge, Interfacility Transfer EMTALA - My Orders Last 24 Hours: My Active Orders 07/21/18 23:47 EKG Documentation Completion [RC] STAT - Assessment/Plan Last 24 Hours: My Active Orders 07/21/18 23:47 EKG Documentation Completion [RC] STAT
[2018-07-22] MEDS ORDERED: Sodium Chloride 0.9% 1,000 ML IV ONE (01:25)
[2018-07-23] MEDS ORDERED: Acetylcysteine 20% 200 MG/ML 30 ML SDV IV ONE (06:47)
== END 2018-07-22 01:49 ==
LOC: DL.ED 23:47
DX: T39.1X2A Poisoning by 4-Aminophenol derivatives, intentional self-harm, initial encounter (principal); T42.6X2A Poisoning by other antiepileptic and sedative-hypnotic drugs, intentional self-harm, initial encounter; F10.229 Alcohol dependence with intoxication, unspecified; I10 Essential (primary) hypertension; E11.9 Type 2 diabetes mellitus without complications; Z79.4 Long term (current) use of insulin; Z79.899 Other long term (current) drug therapy; Z88.0 Allergy status to penicillin; Z88.1 Allergy status to other antibiotic agents; Y90.6 Blood alcohol level of 120-199 mg/100 ml
CPT/HCPCS: 36415; 80053; 80305-QW; 81003; 85025; 93005; 96361; 96365; 96374; 99285; G0480; J0132; J2405; J7030; J7120

== ENCOUNTER 2018-10-15 02:54 | Emergency (ER) | payer SELFPAY ==
--- NOTE | 2018-10-15 03:08 | EDM.PDOC ---
ED HPI GENERAL MEDICAL PROBLEM - General Chief Complaint: Chest Pain Stated Complaint: AMBULANCE-UNKNOWN Time Seen by Provider: 10/15/18 02:58 Source of Information: Reports: Patient, EMS History Limitations: Reports: No Limitations - History of Present Illness INITIAL COMMENTS - FREE TEXT/NARRATIVE: This 28 yo male patient was brought to the ED by [facility] due to chest pain. The patient initially reported his chest pain started about 1 1/2 hours ago after he snorted some meth. The patient reports his pain was in his chest and also into his left shoulder. The patient later reported his chest pain started yesterday after he ran out of his blood pressure medications. The patient has not been taking his medications as directed (stopped taking his insulin 3 months ago and ran out of his blood pressure medications yesterday). The patient reports his suffering from chronic pancreatitis and has frequent thoughts of suicide. The patient did speak with the [facility] prior to being transported to the ED. The patient reports he got out of the psych facility about 2 months ago. The patient has been having difficulties dealing with several deaths (his son in August and his Grandfather last week). The patient also reports an increase in his anxiety due to an increased heartrate after taking meth. Onset: Today Duration: Hour(s):, Intermittent Location: Reports: Chest Quality: Reports: Ache Severity: Moderate Improves with: Reports: None Worsens with: Reports: None Context: Reports: Other Associated Symptoms: Reports: Chest Pain, Other (anxiety) Left Chest Pain Score (Numeric/FACES): 6 - Related Data Allergies Allergy/AdvReac Type Severity Reaction Status Date / Time amoxicillin [Amoxicillin] Allergy Cannot Verified 10/15/18 03:36 Remember cephalexin monohydrate Allergy Cannot Verified 10/15/18 03:36 [From Keflex] Remember Penicillins Allergy Cannot Verified 10/15/18 03:36 Remember Home Meds: Home Meds Insulin Aspart [NovoLOG] 10 unit SQ TIDAC 09/02/13 [History] Lisinopril 20 mg PO DAILY 09/02/13 [History] Insulin Detemir [Levemir Flexpen] 50 units SQ DAILY 11/21/13 [History] Metoprolol Tartrate 100 mg PO DAILY 11/21/13 [History] Past Medical History - Past Health History Medical/Surgical History: Denies Medical/Surgical History HEENT History: Reports: Impaired Vision Cardiovascular History: Reports: Hypertension Respiratory History: Reports: Intubation, Previous, Other (See Below) Other Respiratory History: Pt was intubated previously to get him through detox Gastrointestinal History: Reports: Cirrhosis, Gastritis, GERD, GI Bleed, Pancreatitis, PUD Other Gastrointestinal History: varicies Genitourinary History: Reports: Renal Disease Other Genitourinary History: renal disease Musculoskeletal History: Reports: None Neurological History: Reports: None Psychiatric History: Reports: Addiction, Anxiety, Panic Attack Endocrine/Metabolic History: Reports: Diabetes, Type II, IDDM Hematologic History: Reports: Anemia Immunologic History: Reports: None Oncologic (Cancer) History: Reports: None Dermatologic History: Reports: None - Infectious Disease History Infectious Disease History: Reports: Chicken Pox - Past Surgical History GI Surgical History: Reports: Appendectomy, EGD, ERCP, Other (See Below) Musculoskeletal Surgical History: Reports: None Social & Family History - Family History Family Medical History: Noncontributory HEENT: Reports: None Cardiac: Reports: Afib, CAD, Heart Failure, High Cholesterol, Hypertension Other Cardiac Family History: mom's Respiratory: Reports: Asthma, COPD Other Respiratory Family Hisory: grandfather on mom's side. GI: Reports: Cholelithiasis, Cirrhosis, GI bleed, Hepatitis, Jaundice, Pancreatitis : Reports: Diabetic Nephropathy, Dialysis, Renal Disease/Insufficiency Musculoskeletal: Reports: Gout Neurological: Reports: CVA Psychiatric: Reports: Anxiety, Depression Endocrine/Metabolic: Reports: Diabetes, Type I, Diabetes, type II Other Endocrine/Metabolic Family History: Grandpa- Diabetes Type II ; Mother - Diabetes Type I Hematologic: Reports: Anemia - Tobacco Use Smoking Status *Q: Light Tobacco Smoker Years of Tobacco use: 10 Packs/Tins Daily: 0.5 - Caffeine Use Caffeine Use: Reports: Tea - Recreational Drug Use Recreational Drug Use: Yes Recreational Drug Type: Reports: Methamphetamine - Sexual History Sexual History: Reports: Sexually Active, Single Partner - Living Situation & Occupation Living situation: Reports: with Significant Other, with Family Occupation: Employed ED ROS GENERAL - Review of Systems Review Of Systems: ROS reveals no pertinent complaints other than HPI. ED EXAM, GENERAL - Physical Exam Exam: See Below Exam Limited By: No Limitations General Appearance: Alert, WD/WN, Anxious, Moderate Distress Eye Exam: Bilateral Eye: EOMI, Normal Inspection, PERRL Ears: Normal External Exam, Normal Canal, Hearing Grossly Normal, Normal TMs Nose: Normal Inspection Throat/Mouth: Normal Inspection, Normal Lips, Normal Teeth, Normal Gums, Normal Oropharynx, Normal Voice, No Airway Compromise Head: Atraumatic, Normocephalic Neck: Normal Inspection, Supple, Non-Tender, Full Range of Motion Respiratory/Chest: No Respiratory Distress, Lungs Clear, Normal Breath Sounds, No Accessory Muscle Use, Chest Non-Tender Cardiovascular: Normal Peripheral Pulses, Regular Rate, Rhythm, No Edema, No Gallop, No JVD, No Murmur, No Rub GI/Abdominal: Normal Bowel Sounds, Soft, Non-Tender, No Organomegaly, No Distention, No Abnormal Bruit, No Mass (Male) Exam: Deferred Rectal (Males) Exam: Deferred Back Exam: Normal Inspection, Full Range of Motion, NT Extremities: Normal Inspection, Normal Range of Motion, Non-Tender, Normal Capillary Refill, No Pedal Edema Neurological: Alert, Oriented, CN II-XII Intact, Normal Cognition, Normal Gait, No Motor/Sensory Deficits, Disoriented Psychiatric: Anxious, Depressed Mood Skin Exam: Warm, Dry, Intact, Normal Color, No Rash Lymphatic: No Adenopathy Course - Vital Signs Last Recorded V/S: Last Vital Signs Temp 37.5 C 10/15/18 02:55 Pulse 108 H 10/15/18 03:35 Resp 24 H 10/15/18 03:35 BP 147/93 H 10/15/18 03:35 Pulse Ox 100 10/15/18 03:35 - Orders/Labs/Meds Orders: Active Orders 24 hr Category Date Time Status EKG Documentation Completion [RC] URGENT Care 10/15/18 03:01 Ordered Chest 1V Frontal [CR] Urgent Exams 10/15/18 03:02 Ordered Labs: Laboratory Tests 10/15/18 10/15/18 10/15/18 Range/Units 03:00 03:00 03:49 WBC 9.1 (5.0-10.0) 10^3/uL RBC 4.61 (4.6-6.2) 10^6/uL Hgb 14.0 (14.0-18.0) g/dL Hct 39.5 L (40.0-54.0) % MCV 85.7 D (80-100) fL MCH 30.4 (27.0-34.0) pg MCHC 35.4 H (33.0-35.0) g/dL Plt Count 242 (150-450) 10^3/uL Neut % (Auto) 68.8 (42.2-75.2) % Lymph % (Auto) 25.0 (20.5-50.1) % [place] % (Auto) 5.8 (2-8) % Eos % (Auto) 0.3 L (1.0-3.0) % Baso % (Auto) 0.1 (0.0-1.0) % Sodium 126 L D (135-145) mmol/L Potassium 3.4 L (3.6-5.0) mmol/L Chloride 90 L (101-111) mmol/L Carbon Dioxide 18.0 L (21.0-31.0) mmol/L Anion Gap 21.4 BUN 7 (7-18) mg/dL Creatinine 0.7 (0.6-1.3) mg/dL Est Cr Clr Drug Dosing 175.97 mL/min Estimated GFR (MDRD) > 60 BUN/Creatinine Ratio 10.00 Glucose 237 H (74-105) mg/dL Calcium 8.9 (8.4-10.2) mg/dl Total Bilirubin 1.4 H (0.2-1.0) mg/dL AST 23 (10-42) IU/L ALT 18 (10-60) IU/L Alkaline Phosphatase 77 (42-121) IU/L Troponin I < 0.02 (0.00-0.02) ng/ml Total Protein 7.3 (6.7-8.2) g/dl Albumin 4.3 (3.2-5.5) g/dl Globulin 3.0 Albumin/Globulin Ratio 1.43 Urine Color Yellow (YELLOW) Urine Appearance Clear (CLEAR) Urine pH 5.5 (5.0-9.0) Ur Specific [place] <= 1.005 (1.005-1.030) Urine Protein Negative (NEGATIVE) Urine Glucose (UA) >=1000 H (NEGATIVE) Urine Ketones 40 H (NEGATIVE) Urine Occult Blood Negative (NEGATIVE) Urine Nitrite Negative (NEGATIVE) Urine Bilirubin Negative (NEGATIVE) Urine Urobilinogen 0.2 (0.2-1.0) mg/dL Ur Leukocyte Esterase Negative (NEGATIVE) Urine Opiates Screen (NEGATIVE) Ur Oxycodone Screen (NEGATIVE) Urine Methadone Screen (NEGATIVE) Ur Barbiturates Screen (NEGATIVE) U Tricyclic Antidepress (NEGATIVE) Ur Phencyclidine Scrn (NEGATIVE) Ur Amphetamine Screen (NEGATIVE) U Methamphetamines Scrn (NEGATIVE) Urine MDMA Screen (NEGATIVE) U Benzodiazepines Scrn (NEGATIVE) Urine Cocaine Screen (NEGATIVE) U Marijuana (THC) Screen (NEGATIVE) 10/15/18 Range/Units 03:49 WBC (5.0-10.0) 10^3/uL RBC (4.6-6.2) 10^6/uL Hgb (14.0-18.0) g/dL Hct (40.0-54.0) % MCV (80-100) fL MCH (27.0-34.0) pg MCHC (33.0-35.0) g/dL Plt Count (150-450) 10^3/uL Neut % (Auto) (42.2-75.2) % Lymph % (Auto) (20.5-50.1) % [place] % (Auto) (2-8) % Eos % (Auto) (1.0-3.0) % Baso % (Auto) (0.0-1.0) % Sodium (135-145) mmol/L Potassium (3.6-5.0) mmol/L Chloride (101-111) mmol/L Carbon Dioxide (21.0-31.0) mmol/L Anion Gap BUN (7-18) mg/dL Creatinine (0.6-1.3) mg/dL Est Cr Clr Drug Dosing mL/min Estimated GFR (MDRD) BUN/Creatinine Ratio Glucose (74-105) mg/dL Calcium (8.4-10.2) mg/dl Total Bilirubin (0.2-1.0) mg/dL AST (10-42) IU/L ALT (10-60) IU/L Alkaline Phosphatase (42-121) IU/L Troponin I (0.00-0.02) ng/ml Total Protein (6.7-8.2) g/dl Albumin (3.2-5.5) g/dl Globulin Albumin/Globulin Ratio Urine Color (YELLOW) Urine Appearance (CLEAR) Urine pH (5.0-9.0) Ur Specific [place] (1.005-1.030) Urine Protein (NEGATIVE) Urine Glucose (UA) (NEGATIVE) Urine Ketones (NEGATIVE) Urine Occult Blood (NEGATIVE) Urine Nitrite (NEGATIVE) Urine Bilirubin (NEGATIVE) Urine Urobilinogen (0.2-1.0) mg/dL Ur Leukocyte Esterase (NEGATIVE) Urine Opiates Screen Negative (NEGATIVE) Ur Oxycodone Screen Positive H (NEGATIVE) Urine Methadone Screen Negative (NEGATIVE) Ur Barbiturates Screen Negative (NEGATIVE) U Tricyclic Antidepress Negative (NEGATIVE) Ur Phencyclidine Scrn Negative (NEGATIVE) Ur Amphetamine Screen Negative (NEGATIVE) U Methamphetamines Scrn Positive H (NEGATIVE) Urine MDMA Screen Negative (NEGATIVE) U Benzodiazepines Scrn Negative (NEGATIVE) Urine Cocaine Screen Negative (NEGATIVE) U Marijuana (THC) Screen Negative (NEGATIVE) Meds: Medications Discontinued Medications Generic Name Dose Route Start Last Admin Trade Name Freq PRN Reason Stop Dose Admin Metoprolol Tartrate 50 mg 10/15/18 03:12 10/15/18 03:17 Lopressor PO 10/15/18 03:13 50 mg ONETIME ONE Administration Departure - Departure Time of Disposition: 04:13 Disposition: DC/Tfer to [facility] Enf 21 Reason for Transfer *Q: Other Condition: Fair Clinical Impression: Methamphetamine abuse, Atypical chest pain, Suicidal ideation Forms: ED Department Discharge Care Plan Goals: The patient was advised of the examination, EKG, lab and x-ray results during the visit. [facility] while the patient was in the ED due to suicidal ideation. The patient will be evaluated by [facility] in the morning. If the patient has any additional symptoms or concerns, the patient should either return to the emergency department or visit his primary care facility. - My Orders Last 24 Hours: My Active Orders 10/15/18 03:01 EKG Documentation Completion [RC] URGENT 10/15/18 03:02 Chest 1V Frontal [CR] Urgent - Assessment/Plan Last 24 Hours: My Active Orders 10/15/18 03:01 EKG Documentation Completion [RC] URGENT 10/15/18 03:02 Chest 1V Frontal [CR] Urgent
[2018-10-15] MEDS ORDERED: Metoprolol Tartrate 50 MG Tab PO ONE (03:12)
[2018-10-15 03:29] LABS: ANION GAP 21.4; CHLORIDE,CL 90 mmol/L (101-111); SODIUM,NA 126 mmol/L (135-145)
[2018-10-15 03:36] VITALS: BP 147/93
== END 2018-10-15 04:52 ==
LOC: DL.ED 02:54
DX: R07.89 Other chest pain (principal); F15.10 Other stimulant abuse, uncomplicated; R45.851 Suicidal ideations; F17.210 Nicotine dependence, cigarettes, uncomplicated; I10 Essential (primary) hypertension; E11.9 Type 2 diabetes mellitus without complications; Z79.4 Long term (current) use of insulin; Z79.899 Other long term (current) drug therapy; Z88.0 Allergy status to penicillin; Z88.1 Allergy status to other antibiotic agents
CPT/HCPCS: 36415; 71045; 80053; 80305; 81003; 84484; 85025; 93005; 99285; A9270

== ENCOUNTER 2021-01-24 04:45 | Emergency (ER) | payer MEDICAID ==
[2021-01-24] MEDS ORDERED: Sodium Chloride 0.9% 1,000 ML IV ONE (05:02)
--- NOTE | 2021-01-24 05:11 | EDM.PDOC ---
<Kyara Moran - Last Filed: 01/24/21 06:15> ED HPI GENERAL MEDICAL PROBLEM - General Stated Complaint: DIABETIC,HIGH BLOOD SUGAR,HIGH BLOOD PRESSURE Time Seen by Provider: 01/24/21 05:10 Source of Information: Reports: Patient History Limitations: Reports: No Limitations - History of Present Illness INITIAL COMMENTS - FREE TEXT/NARRATIVE: Ed with c/o left elbow lower arm pain without injury. BS high at home. Arm feels like shooting sharp pains with movement. CoVID shot to left arm last week. Admits meth use today. IV. but used other arm . Left Elbow Pain Score (Numeric/FACES): 8 - Related Data Allergies Allergy/AdvReac Type Severity Reaction Status Date / Time amoxicillin [Amoxicillin] Allergy Cannot Verified 01/24/21 05:25 Remember cephalexin monohydrate Allergy Cannot Verified 01/24/21 05:25 [From Keflex] Remember Penicillins Allergy Cannot Verified 01/24/21 05:25 Remember Home Meds: Home Meds Insulin Aspart [NovoLOG] 30 unit SQ TIDAC 09/02/13 [History] Lisinopril 20 mg PO DAILY 09/02/13 [History] Insulin Detemir [Levemir Flexpen] 100 units SQ DAILY 11/21/13 [History] Metoprolol Tartrate 100 mg PO DAILY 11/21/13 [History] Mirtazapine [Remeron] 30 mg PO BEDTIME 01/24/21 [History] Omeprazole 20 mg PO DAILY 01/24/21 [History] Past Medical History - Past Health History Medical/Surgical History: Denies Medical/Surgical History HEENT History: Reports: Impaired Vision Cardiovascular History: Reports: Hypertension Respiratory History: Reports: Intubation, Previous, Other (See Below) Other Respiratory History: Pt was intubated previously to get him through detox Gastrointestinal History: Reports: Cirrhosis, Gastritis, GERD, GI Bleed, Pancreatitis, PUD Other Gastrointestinal History: varicies Genitourinary History: Reports: Renal Disease Other Genitourinary History: renal disease Musculoskeletal History: Reports: None Neurological History: Reports: None Psychiatric History: Reports: Addiction, Anxiety, Panic Attack Endocrine/Metabolic History: Reports: Diabetes, Type II, IDDM Hematologic History: Reports: Anemia Immunologic History: Reports: None Oncologic (Cancer) History: Reports: None Dermatologic History: Reports: None - Infectious Disease History Infectious Disease History: Reports: Chicken Pox - Past Surgical History GI Surgical History: Reports: Appendectomy, EGD, ERCP, Other (See Below) Musculoskeletal Surgical History: Reports: None Social & Family History - Family History Family Medical History: No Pertinent Family History HEENT: Reports: None Cardiac: Reports: Afib, CAD, Heart Failure, High Cholesterol, Hypertension Other Cardiac Family History: mom's Respiratory: Reports: Asthma, COPD Other Respiratory Family Hisory: grandfather on mom's side. GI: Reports: Cholelithiasis, Cirrhosis, GI bleed, Hepatitis, Jaundice, Pancreatitis : Reports: Diabetic Nephropathy, Dialysis, Renal Disease/Insufficiency Musculoskeletal: Reports: Gout Neurological: Reports: CVA Psychiatric: Reports: Anxiety, Depression Endocrine/Metabolic: Reports: Diabetes, Type I, Diabetes, type II Other Endocrine/Metabolic Family History: Grandpa- Diabetes Type II ; Mother -Diabetes Type I Hematologic: Reports: Anemia - Caffeine Use Caffeine Use: Reports: Tea - Sexual History Sexual History: Reports: Sexually Active, Single Partner - Living Situation & Occupation Living situation: Reports: with Significant Other, with Family Occupation: Employed Review of Systems - Review of Systems Review Of Systems: Comprehensive ROS is negative, except as noted in HPI. ED EXAM, GENERAL - Physical Exam Exam: See Below Exam Limited By: No Limitations General Appearance: Alert, Anxious, Mild Distress Eye Exam: Bilateral Eye: EOMI Ears: Normal External Exam, Hearing Grossly Normal Nose: Normal Inspection Throat/Mouth: Normal Inspection Head: Atraumatic, Normocephalic Neck: Normal Inspection Respiratory/Chest: No Respiratory Distress, Lungs Clear, Normal Breath Sounds Cardiovascular: Normal Peripheral Pulses, Regular Rate, Rhythm, Tachycardia GI/Abdominal: Normal Bowel Sounds, Soft Extremities: Joint Swelling (mild right elbow, no redness, mild warth pain with extension) Neurological: Alert, Oriented, Normal Cognition Psychiatric: Anxious Skin Exam: Warm, Dry, Intact, Tattoo(s), Other (track olguin right anticubital and forearm). No: No Rash, Erythema Departure - Departure Disposition: Home, Self-Care 01 Clinical Impression: Left elbow contusion Qualifiers: Encounter type: initial encounter Qualified Code(s): S50.02XA - Contusion of left elbow, initial encounter Bursitis of left elbow Qualifiers: Elbow bursitis location: olecranon bursitis Qualified Code(s): M70.22 - Olecranon bursitis, left elbow - Discharge Information Instructions: Elbow Bursitis, [id number], Elbow Contusion, [id number] Forms: ED Department Discharge Care Plan Goals: The patient was advised of the examination, lab and x-ray results during the visit. The patient was given an injection of SoluMedrol, elbow was wrapped with an MARIO wrap and placed in a sling. The patient was encouraged to rest, ice and elevate the extremity. The patient may take Tylenol or ibuprofen as directed for temporary symptom relief. If the patient has any additional symptoms or concerns, the patient should either return to the emergency department or visit his primary care facility. <Judd Levi M - Last Filed: 01/24/21 08:16> Course - Vital Signs Last Recorded V/S: Last Vital Signs Temp 98.2 F 01/24/21 05:29 Pulse 129 H 01/24/21 06:08 Resp 25 H 01/24/21 06:08 BP 140/96 H 01/24/21 06:08 Pulse Ox 96 01/24/21 06:08 - Orders/Labs/Meds Orders: Active Orders 24 hr Category Date Time Status Blood Glucose Check, Bedside [RC] ONETIME Care 01/24/21 04:59 Active CULTURE BLOOD [BC] Stat Lab 01/24/21 05:04 Results DME for Discharge [COMM] Urgent Oth 01/24/21 08:07 Ordered Labs: Laboratory Tests 01/24/21 01/24/21 01/24/21 Range/Units 05:03 05:04 05:04 WBC 11.5 H (5.0-10.0) 10^3/uL RBC 5.35 (4.6-6.2) 10^6/uL Hgb 15.8 D (14.0-18.0) g/dL Hct 45.2 (40.0-54.0) % MCV 84.5 (80-100) fL MCH 29.5 (27.0-34.0) pg MCHC 35.0 (33.0-35.0) g/dL Plt Count 213 (150-450) 10^3/uL Neut % (Auto) 72.5 (42.2-75.2) % Lymph % (Auto) 18.2 L (20.5-50.1) % Cook % (Auto) 8.7 H (2-8) % Eos % (Auto) 0.4 L (1.0-3.0) % Baso % (Auto) 0.2 (0.0-1.0) % D-Dimer, Quantitative (0-400) ng/mL Sodium 137 (136-145) mmol/L Potassium 4.4 (3.5-5.1) mmol/L Chloride 99 (98-107) mmol/L Carbon Dioxide 22 (21-32) mmol/L Anion Gap 20.4 H (7-13) mEq/L BUN 13 (7-18) mg/dL Creatinine 0.88 (0.70-1.30) mg/dL Est Cr Clr Drug Dosing 141.41 mL/min Estimated GFR (MDRD) > 60 BUN/Creatinine Ratio 14.8 (No establ ref range) Glucose 248 H (70-99) mg/dL POC Glucose 247 H (70-99) mg/dL Lactic Acid (0.4-2.0) mmol/L Calcium 8.8 (8.5-10.1) mg/dL Total Bilirubin 1.7 H (0.2-1.0) mg/dL AST 216 H (15-37) U/L ALT 321 H (16-63) U/L Alkaline Phosphatase 116 (46-116) U/L Troponin I High Sens 26 (<=76) pg/mL Total Protein 8.1 (6.4-8.2) g/dL Albumin 4.1 (3.4-5.0) g/dL Globulin 4.0 Albumin/Globulin Ratio 1.0 Amylase 15 L (25-115) U/L Lipase 47 L (73-393) U/L Urine Opiates Screen (NEGATIVE) Ur Oxycodone Screen (NEGATIVE) Urine Methadone Screen (NEGATIVE) Ur Barbiturates Screen (NEGATIVE) U Tricyclic Antidepress (NEGATIVE) Ur Phencyclidine Scrn (NEGATIVE) Ur Amphetamine Screen (NEGATIVE) U Methamphetamines Scrn (NEGATIVE) Urine MDMA Screen (NEGATIVE) U Benzodiazepines Scrn (NEGATIVE) Urine Cocaine Screen (NEGATIVE) U Marijuana (THC) Screen (NEGATIVE) Ethyl Alcohol < 3 (0) mg/dL Ketones Small-20 mg/dl 01/24/21 01/24/21 01/24/21 Range/Units 05:04 05:04 06:10 WBC (5.0-10.0) 10^3/uL RBC (4.6-6.2) 10^6/uL Hgb (14.0-18.0) g/dL Hct (40.0-54.0) % MCV (80-100) fL MCH (27.0-34.0) pg MCHC (33.0-35.0) g/dL Plt Count (150-450) 10^3/uL Neut % (Auto) (42.2-75.2) % Lymph % (Auto) (20.5-50.1) % Cook % (Auto) (2-8) % Eos % (Auto) (1.0-3.0) % Baso % (Auto) (0.0-1.0) % D-Dimer, Quantitative < 100 (0-400) ng/mL Sodium (136-145) mmol/L Potassium (3.5-5.1) mmol/L Chloride (98-107) mmol/L Carbon Dioxide (21-32) mmol/L Anion Gap (7-13) mEq/L BUN (7-18) mg/dL Creatinine (0.70-1.30) mg/dL Est Cr Clr Drug Dosing mL/min Estimated GFR (MDRD) BUN/Creatinine Ratio (No establ ref range) Glucose (70-99) mg/dL POC Glucose (70-99) mg/dL Lactic Acid 1.2 (0.4-2.0) mmol/L Calcium (8.5-10.1) mg/dL Total Bilirubin (0.2-1.0) mg/dL AST (15-37) U/L ALT (16-63) U/L Alkaline Phosphatase (46-116) U/L Troponin I High Sens (<=76) pg/mL Total Protein (6.4-8.2) g/dL Albumin (3.4-5.0) g/dL Globulin Albumin/Globulin Ratio Amylase (25-115) U/L Lipase (73-393) U/L Urine Opiates Screen Negative (NEGATIVE) Ur Oxycodone Screen Negative (NEGATIVE) Urine Methadone Screen Negative (NEGATIVE) Ur Barbiturates Screen Negative (NEGATIVE) U Tricyclic Antidepress Negative (NEGATIVE) Ur Phencyclidine Scrn Negative (NEGATIVE) Ur Amphetamine Screen Positive H (NEGATIVE) U Methamphetamines Scrn Positive H (NEGATIVE) Urine MDMA Screen Positive H (NEGATIVE) U Benzodiazepines Scrn Negative (NEGATIVE) Urine Cocaine Screen Negative (NEGATIVE) U Marijuana (THC) Screen Negative (NEGATIVE) Ethyl Alcohol (0) mg/dL Ketones Meds: Medications Discontinued Medications Generic Name Dose Route Start Last Admin Trade Name Rajivq PRN Reason Stop Dose Admin Sodium Chloride 1,000 mls @ 999 mls/hr 01/24/21 05:02 01/24/21 05:27 Normal Saline IV 01/24/21 06:02 999 mls/hr .BOLUS ONE Administration Ketorolac Tromethamine 30 mg 01/24/21 05:35 01/24/21 05:49 Ketorolac 30 Mg/Ml Sdv IVPUSH 01/24/21 05:36 30 mg ONETIME ONE Administration Lorazepam 1 mg 01/24/21 05:35 01/24/21 05:46 Lorazepam 2 Mg/Ml Sdv IVPUSH 01/24/21 05:36 1 mg ONETIME ONE Administration Methylprednisolone Sodium Succinate 125 mg 01/24/21 08:07 Methylprednisolone Sodium Succinate 125 Mg/2 Ml Sdv IM 01/24/21 08:08 ONETIME ONE - Re-Assessments/Exams Free Text/Narrative Re-Assessment/Exam: 01/24/21 08:08 Patient care was taken over at shift change. X-ray results were reviewed with the patient. The patient does report falling on his elbow and continues to have pain. With no acute fracture or injury noted, the patient was given an injection of steroids and his elbow was wrapped with an MARIO wrap. Departure - Departure Time of Disposition: 08:09 Condition: Fair - Discharge Information *PRESCRIPTION DRUG MONITORING PROGRAM REVIEWED*: Not Applicable *COPY OF PRESCRIPTION DRUG MONITORING REPORT IN PATIENT LAURO: Not Applicable Sepsis Event Note (ED) - Focused Exam Vital Signs: Vital Signs Temp Pulse Pulse Resp BP Pulse Ox 01/24/21 06:08 129 H 25 H 140/96 H 96 01/24/21 05:29 98.2 F 133 H 26 H 147/92 H 97 01/24/21 04:50 98.1 F 150 H 18 126/76 97 - My Orders Last 24 Hours: My Active Orders 01/24/21 08:07 DME for Discharge [COMM] Urgent - Assessment/Plan Last 24 Hours: My Active Orders 01/24/21 08:07 DME for Discharge [COMM] Urgent
[2021-01-24] MEDS ORDERED: Ketorolac 30 MG/ML SDV IVPUSH ONE (05:35)
[2021-01-24] MEDS ORDERED: LORazepam 2 MG/ML SDV IVPUSH ONE (05:35)
[2021-01-24 05:40] LABS: ANION GAP 20.4 mEq/L (7-13); CHLORIDE,CL 99 mmol/L (98-107); SODIUM,NA 137 mmol/L (136-145)
[2021-01-24 06:09] VITALS: BP 140/96; PULSE 129
[2021-01-24 06:27] LABS: AMPHETAMINES,URINE POSITIVE (NEGATIVE); BARBITURATES,URINE NEGATIVE (NEGATIVE); BENZODIAZEPINE,URINE NEGATIVE (NEGATIVE); MDMA (ECSTASY), URINE POSITIVE (NEGATIVE); METHADONE,URINE NEGATIVE (NEGATIVE); METHAMPHETAMINES,URINE POSITIVE (NEGATIVE); OPIATES,URINE NEGATIVE (NEGATIVE); OXYCODONE,URINE NEGATIVE (NEGATIVE); PHENCYCLIDINE,URINE NEGATIVE (NEGATIVE); TCA,URINE NEGATIVE (NEGATIVE)
--- NOTE | 2021-01-24 08:04 | CR ---
PROCEDURE INFORMATION: Exam: XR Left Elbow Exam date and time: 01/24/2021 6:36 AM Age: 30 years old Clinical indication: Pain; Elbow; Left; Additional info: Pain, limited rom, no injury TECHNIQUE: Imaging protocol: XR Left elbow. Views: 1 or 2 views. COMPARISON: No relevant prior studies available. FINDINGS: Bones/joints: Normal. Soft tissues: Normal. IMPRESSION: No acute findings.
[2021-01-24] MEDS ORDERED: methylPREDNISolone Sodium Succinate 125 MG/2 ML SDV IM ONE (08:07)
[2021-01-24] MEDS ORDERED: methylPREDNISolone Sodium Succinate 125 MG/2 ML SDV IVPUSH ONE (08:20)
== END 2021-01-24 08:30 | disposition home or self-care (01) ==
LOC: DL.ED 04:45
DX: S50.02XA Contusion of left elbow, initial encounter (principal); M70.22 Olecranon bursitis, left elbow; K21.9 Gastro-esophageal reflux disease without esophagitis; I10 Essential (primary) hypertension; E11.9 Type 2 diabetes mellitus without complications; Z79.4 Long term (current) use of insulin; Z79.899 Other long term (current) drug therapy; Z88.0 Allergy status to penicillin; Z88.1 Allergy status to other antibiotic agents; X50.0XXA Overexertion from strenuous movement or load, initial encounter
CPT/HCPCS: 36415; 73070; 80053; 80305; 80307; 82009; 82150; 82947; 83605; 83690; 84484; 85025; 85379; 87040; 96374; 96375; 99283; J1885; J2060; J2930; J7030

== ENCOUNTER 2021-04-23 18:36 | Emergency (ER) | payer MEDICAID ==
[2021-04-23] MEDS ORDERED: Sulfamethoxazole/Trimethoprim 800-160 MG Tab PO ONE (19:20)
[2021-04-23] MEDS ORDERED: Lidocaine 2% with EPINEPHrine 1:200,000 20 ML SDV INJECT ONE (19:20)
[2021-04-23] MEDS ORDERED: Lidocaine 1% 30 ML SDV ONE (19:24)
[2021-04-23] MEDS ORDERED: Lidocaine 1% 30 ML SDV INJECT ONE (19:31)
[2021-04-23 19:41] VITALS: BP 171/92; PULSE 121
--- NOTE | 2021-04-23 19:46 | EDM.PDOC ---
ED HPI GENERAL MEDICAL PROBLEM - General Chief Complaint: Skin Complaint Stated Complaint: BOIL ON SIDE, GETTING WORSE Time Seen by Provider: 04/23/21 19:15 Source of Information: Reports: Patient History Limitations: Reports: No Limitations - History of Present Illness INITIAL COMMENTS - FREE TEXT/NARRATIVE: This 30 yo male patient reports to the ED with an abscess to his right upper thigh. The patient reports he started to notice swelling 3-4 days ago, but today he noticed increased pain and drainage while in the shower. The patient reports he does have a history of MRSA during a previous hospitalization. Duration: Day(s):, Constant, Getting Worse Location: Reports: Lower Extremity, Left Quality: Reports: Ache, Dull Severity: Moderate Improves with: Reports: None Worsens with: Reports: None Associated Symptoms: Reports: No Other Symptoms Left Upper Thigh Pain Score (Numeric/FACES): 5 - Related Data Allergies Allergy/AdvReac Type Severity Reaction Status Date / Time amoxicillin [Amoxicillin] Allergy Cannot Verified 04/23/21 19:20 Remember cephalexin monohydrate Allergy Cannot Verified 04/23/21 19:20 [From Keflex] Remember Cephalosporins Allergy Cannot Verified 04/23/21 19:20 Remember Penicillins Allergy Cannot Verified 04/23/21 19:20 Remember Home Meds: Home Meds Insulin Aspart [NovoLOG] 30 unit SQ TIDAC 09/02/13 [History] Lisinopril 20 mg PO DAILY 09/02/13 [History] Insulin Detemir [Levemir Flexpen] 100 units SQ DAILY 11/21/13 [History] Metoprolol Tartrate 100 mg PO DAILY 11/21/13 [History] Omeprazole 20 mg PO DAILY 01/24/21 [History] Escitalopram [Lexapro] 30 mg PO DAILY 04/23/21 [History] Past Medical History - Past Health History Medical/Surgical History: Denies Medical/Surgical History HEENT History: Reports: Impaired Vision Cardiovascular History: Reports: Hypertension Respiratory History: Reports: Intubation, Previous, Other (See Below) Other Respiratory History: Pt was intubated previously to get him through detox Gastrointestinal History: Reports: Cirrhosis, Gastritis, GERD, GI Bleed, Pancreatitis, PUD Other Gastrointestinal History: varicies Genitourinary History: Reports: Renal Disease Other Genitourinary History: renal disease Musculoskeletal History: Reports: Fracture, Other (See Below) Other Musculoskeletal History: hx lt ankle fx Neurological History: Reports: None Psychiatric History: Reports: Addiction, Anxiety, Panic Attack Endocrine/Metabolic History: Reports: Diabetes, Type II, IDDM Hematologic History: Reports: Anemia Immunologic History: Reports: None Oncologic (Cancer) History: Reports: None Dermatologic History: Reports: None - Infectious Disease History Infectious Disease History: Reports: Chicken Pox - Past Surgical History GI Surgical History: Reports: Appendectomy, EGD, ERCP, Other (See Below) Musculoskeletal Surgical History: Reports: None Social & Family History - Family History Family Medical History: No Pertinent Family History HEENT: Reports: None Cardiac: Reports: Afib, CAD, Heart Failure, High Cholesterol, Hypertension Other Cardiac Family History: mom's Respiratory: Reports: Asthma, COPD Other Respiratory Family Hisory: grandfather on mom's side. GI: Reports: Cholelithiasis, Cirrhosis, GI bleed, Hepatitis, Jaundice, Pancreatitis : Reports: Diabetic Nephropathy, Dialysis, Renal Disease/Insufficiency Musculoskeletal: Reports: Gout Neurological: Reports: CVA Psychiatric: Reports: Anxiety, Depression Endocrine/Metabolic: Reports: Diabetes, Type I, Diabetes, type II Other Endocrine/Metabolic Family History: Grandpa- Diabetes Type II ; Mother - Diabetes Type I Hematologic: Reports: Anemia - Caffeine Use Caffeine Use: Reports: Coffee, Soda - Sexual History Sexual History: Reports: Sexually Active, Single Partner - Living Situation & Occupation Living situation: Reports: with Significant Other, with Family Occupation: Employed ED ROS GENERAL - Review of Systems Review Of Systems: Comprehensive ROS is negative, except as noted in HPI. ED EXAM, SKIN/RASH Exam: See Below Exam Limited By: No Limitations General Appearance: Alert, WD/WN, No Apparent Distress Eye Exam: Bilateral Eye: EOMI, Normal Inspection, PERRL Ears: Normal External Exam, Hearing Grossly Normal Nose: Normal Inspection, No Blood Throat/Mouth: Normal Lips, Normal Teeth, Normal Voice, No Airway Compromise Head: Atraumatic, Normocephalic Neck: Full Range of Motion Respiratory/Chest: No Respiratory Distress, Lungs Clear, Normal Breath Sounds, No Accessory Muscle Use, Chest Non-Tender Cardiovascular: Normal Peripheral Pulses, Regular Rate, Rhythm GI/Abdominal: Normal Bowel Sounds, Soft, Non-Tender, No Organomegaly, No Distention, No Abnormal Bruit, No Mass (Male) Exam: Deferred Rectal (Males) Exam: Deferred Back Exam: Normal Inspection, Full Range of Motion, NT Neurological: Alert, Oriented, CN II-XII Intact, Normal Cognition, Normal Gait, Normal Reflexes, No Motor/Sensory Deficits Psychiatric: Normal Affect, Normal Mood Skin: Erythema, Increased Warmth Location, Skin: Lower Extremity, Left Characteristics: Confluent, Erythematous Associated features: Warmth, Tenderness, Swelling, Induration, Inflammation, Weeping Lymphatic: No Adenopathy ED SKIN PROCEDURES - I&D Site: Left Upper Thigh Skin Prep: Providone-Iodine (Betadine), Isopropyl Alcohol (Alcohol) Local Anesthesia: Lidocaine: 1% Plain Local Anesthetic Volume: 4cc Area Incised With: 15 Blade Drainage: Purulent, Bloody, Moderate Amount Probed to Break Up Loculations: Yes Packed With: None Sterile Dressinx4(s) Complications: No Course - Vital Signs Last Recorded V/S: Last Vital Signs Temp 98.4 F 04/23/21 19:00 Pulse 121 H 04/23/21 19:00 Resp 18 04/23/21 19:00 BP 171/92 H 04/23/21 19:00 Pulse Ox 97 04/23/21 19:00 - Orders/Labs/Meds Orders: Active Orders 24 hr Category Date Time Status CULTURE WOUND [RM] Stat Lab 04/23/21 19:20 Ordered Meds: Medications Discontinued Medications Generic Name Dose Route Start Last Admin Trade Name Naomi PRN Reason Stop Dose Admin Lidocaine HCl Confirm 04/23/21 19:24 04/23/21 19:34 Lidocaine 1% 30 Ml Sdv Administered 04/23/21 19:25 Not Given Dose 30 ml .ROUTE .STK-MED ONE Lidocaine HCl 30 ml 04/23/21 19:31 04/23/21 19:33 Lidocaine 1% 30 Ml Sdv INJECT 04/23/21 19:32 4 ml ONETIME ONE Administration Lidocaine/Epinephrine 20 ml 04/23/21 19:20 04/23/21 19:34 Lidocaine 2% With Epinephrine 1:200,000 20 Ml Sdv INJECT 04/23/21 19:21 Not Given ONETIME ONE Trimethoprim/Sulfamethoxazole 1 tab 04/23/21 19:20 04/23/21 19:31 Sulfamethoxazole/Trimethoprim 800-160 Mg Tab PO 04/23/21 19:21 1 tab ONETIME ONE Administration Departure - Departure Time of Disposition: 19:41 Disposition: Home, Self-Care 01 Condition: Fair Clinical Impression: Abscess of left thigh - Discharge Information *PRESCRIPTION DRUG MONITORING PROGRAM REVIEWED*: Not Applicable *COPY OF PRESCRIPTION DRUG MONITORING REPORT IN PATIENT LAURO: Not Applicable Instructions: Skin Abscess, Cafa-[id number] Forms: ED Department Discharge Care Plan Goals: The patient was advised of the examination results during the visit. The patient's abscess was incised and drained during the visit. The patient was given an oral dose of Bactrim DS while in the ED. The patient was discharged with a script for Bactrim DS #20 to take 1 by mouth 2 times per day for 10 days. The patient was encouraged to keep the area clean and dry over the next 24 hours. The patient should keep the area covered until the area stops draining. If the patient has any additional symptoms or concerns, the patient should either return to the emergency department or visit his primary care facility. Sepsis Event Note (ED) - Evaluation Sepsis Screening Result: No Definite Risk - Focused Exam Vital Signs: Vital Signs Temp Pulse Resp BP Pulse Ox 04/23/21 19:00 98.4 F 121 H 18 171/92 H 97 - My Orders Last 24 Hours: My Active Orders 04/23/21 19:20 CULTURE WOUND [RM] Stat - Assessment/Plan Last 24 Hours: My Active Orders 04/23/21 19:20 CULTURE WOUND [RM] Stat
== END 2021-04-23 19:51 | disposition home or self-care (01) ==
LOC: DL.ED 18:36
DX: L02.416 Cutaneous abscess of left lower limb (principal); I10 Essential (primary) hypertension; K21.9 Gastro-esophageal reflux disease without esophagitis; E11.9 Type 2 diabetes mellitus without complications; Z88.0 Allergy status to penicillin; Z88.1 Allergy status to other antibiotic agents; Z79.4 Long term (current) use of insulin; Z79.899 Other long term (current) drug therapy
CPT/HCPCS: 10060; 87070; 87077; 87186; 99283-25; A9270-GY

== ENCOUNTER 2022-01-24 12:30 | Observation (INO) | payer MEDICAID ==
[2022-01-24] MEDS ORDERED: Iopamidol 612 MG/ML 100 ML Bottle IVPUSH ONE (13:14)
[2022-01-24 13:33] LABS: CHLORIDE,CL 97 mmol/L (98-107); SODIUM,NA 134 mmol/L (136-145)
[2022-01-24 13:34] LABS: ESTIMATED GFR 115 mL/min (>=60)
[2022-01-24] MEDS: Sodium Chloride 0.9% 10 ML Syringe FLUSH PRN (13:34)
[2022-01-24 15:23] LABS: AMPHETAMINES,URINE NEGATIVE (NEGATIVE); BARBITURATES,URINE NEGATIVE (NEGATIVE); BENZODIAZEPINE,URINE NEGATIVE (NEGATIVE); MDMA (ECSTASY), URINE NEGATIVE (NEGATIVE); METHADONE,URINE NEGATIVE (NEGATIVE); METHAMPHETAMINES,URINE NEGATIVE (NEGATIVE); OPIATES,URINE NEGATIVE (NEGATIVE); OXYCODONE,URINE NEGATIVE (NEGATIVE); PHENCYCLIDINE,URINE NEGATIVE (NEGATIVE); TCA,URINE NEGATIVE (NEGATIVE)
[2022-01-24] MEDS ORDERED: Albuterol 0.083% 2.5 MG/3 ML Neb Soln NEB PRN (16:52)
[2022-01-24] MEDS ORDERED: Ondansetron 4 MG/2 ML SDV IVPUSH PRN (16:52)
[2022-01-24] MEDS ORDERED: Insulin Glarg,Human.Rec.Analog 100 Unit/ML SUBCUT SCH (17:00)
[2022-01-24] MEDS: Sodium Chloride 0.9% 1,000 ML IV SCH ×2 (17:00→20:47)
[2022-01-24] MEDS ORDERED: LORazepam 2 MG/ML SDV IVPUSH PRN (17:04)
[2022-01-24] MEDS ORDERED: hydrALAZINE 20 MG/ML SDV IVPUSH PRN (17:05)
[2022-01-24] MEDS: Enoxaparin 40 MG/0.4 ML Syringe SUBCUT SCH (17:12)
[2022-01-24] MEDS ORDERED: Pneumococcal Polyvalent-23 Vaccine 0.5 ML SDV IM ONE (17:16)
[2022-01-24] MEDS ORDERED: Glucagon,Human Recombinant 1 MG Vial IM PRN ×2 (17:27→19:17)
[2022-01-24] MEDS ORDERED: 50% Dextrose in Water 50 ML Syringe IVPUSH PRN ×2 (17:27→19:17)
[2022-01-24] MEDS: Lisinopril 20 MG Tab PO SCH (17:31)
[2022-01-24] MEDS: Pantoprazole 40 MG Tab.CR PO SCH (17:31)
[2022-01-24] MEDS: Metoprolol Tartrate 50 MG Tab PO SCH (17:31)
[2022-01-24 17:36] LABS: CORONAVIRUS COVID-19 NAA NEGATIVE (NEGATIVE)
[2022-01-24] MEDS: cefTRIAXone 2 GM in Sodium Chloride 0.9% 100 ML IV SCH (17:58)
[2022-01-24] MEDS: Morphine 2 MG/ML SYRINGE IVPUSH PRN (19:49)
[2022-01-24] MEDS ORDERED: Insulin Lispro Protamine/Lispro 75-25 100 Units/ML 10 ML Vial SUBCUT SCH (21:00)
[2022-01-24] MEDS: Multivitamin, Childrens Tab.Chew PO SCH (21:08)
[2022-01-24] MEDS: Insulin Lispro 100 Units/ML 3 ML Vial SUBCUT SCH (21:08)
[2022-01-24] MEDS: Thiamine 100 MG Tab PO SCH (21:08)
[2022-01-24] MEDS: Aspirin 81 MG Tab.Chew PO SCH (21:09)
[2022-01-24] MEDS: Naproxen 250 MG Tab PO PRN (21:09)
[2022-01-24] MEDS: Melatonin 3 MG Tab PO PRN (21:11)
[2022-01-24] MEDS: oxyCODONE 5 MG Tab PO PRN (21:18)
[2022-01-24] MEDS: Lactated Ringers 1,000 ML IV SCH (21:53)
[2022-01-25] MEDS: Morphine 2 MG/ML SYRINGE IVPUSH PRN ×6 (00:23→23:50)
[2022-01-25] MEDS: oxyCODONE 5 MG Tab PO PRN ×2 (04:16→16:32)
[2022-01-25 05:36] LABS: ANION GAP 8.8 mEq/L (7-13)
[2022-01-25] MEDS: Lactated Ringers 1,000 ML IV SCH ×2 (06:05→15:06)
[2022-01-25 07:12] LABS: HEMOGLOBIN A1C 11.8 % (<5.7)
[2022-01-25] MEDS ORDERED: 50% Dextrose in Water 50 ML Syringe IVPUSH PRN (08:11)
[2022-01-25] MEDS ORDERED: Glucagon,Human Recombinant 1 MG Vial IM PRN (08:11)
[2022-01-25] MEDS: Lisinopril 20 MG Tab PO SCH (08:19)
[2022-01-25] MEDS: Pantoprazole 40 MG Tab.CR PO SCH (08:20)
[2022-01-25] MEDS: Escitalopram 10 MG Tab PO SCH (08:20)
[2022-01-25] MEDS: Enoxaparin 40 MG/0.4 ML Syringe SUBCUT SCH (08:21)
[2022-01-25] MEDS: Insulin Lispro 100 Units/ML 3 ML Vial SUBCUT SCH ×6 (08:22→21:14)
[2022-01-25] MEDS: Metoprolol Tartrate 50 MG Tab PO SCH ×2 (08:23→08:39)
[2022-01-25] MEDS: Insulin Glarg,Human.Rec.Analog 100 Unit/ML SUBCUT SCH (08:26)
[2022-01-25] MEDS ORDERED: Insulin Lispro 100 Units/ML 3 ML Vial SUBCUT SCH (12:00)
[2022-01-25] MEDS ORDERED: Iopamidol 755 Mg/ML 100 ML Bottle IVPUSH ONE (13:19)
[2022-01-25] MEDS: cefTRIAXone 2 GM in Sodium Chloride 0.9% 100 ML IV SCH (16:40)
[2022-01-25] MEDS ORDERED: Insulin Lispro 100 Units/ML 3 ML Vial SUBCUT ONE (18:42)
[2022-01-25] MEDS: Thiamine 100 MG Tab PO SCH (21:10)
[2022-01-25] MEDS: Multivitamin, Childrens Tab.Chew PO SCH (21:10)
[2022-01-25] MEDS: Folic Acid 1 MG Tab PO SCH (21:10)
[2022-01-25] MEDS: Aspirin 81 MG Tab.Chew PO SCH (21:11)
[2022-01-25] MEDS: Melatonin 3 MG Tab PO PRN (21:23)
[2022-01-26] MEDS: Lactated Ringers 1,000 ML IV SCH (00:49)
[2022-01-26] MEDS: oxyCODONE 5 MG Tab PO PRN ×3 (04:04→21:10)
[2022-01-26] MEDS: Morphine 2 MG/ML SYRINGE IVPUSH PRN ×3 (05:44→20:06)
[2022-01-26] MEDS: Metoprolol Tartrate 50 MG Tab PO SCH (08:43)
[2022-01-26] MEDS: Lisinopril 20 MG Tab PO SCH (08:43)
[2022-01-26] MEDS: Escitalopram 10 MG Tab PO SCH (08:43)
[2022-01-26] MEDS: Pantoprazole 40 MG Tab.CR PO SCH (08:43)
[2022-01-26] MEDS: Insulin Lispro 100 Units/ML 3 ML Vial SUBCUT SCH ×8 (08:44→21:11)
[2022-01-26] MEDS: Insulin Glarg,Human.Rec.Analog 100 Unit/ML SUBCUT SCH (08:46)
[2022-01-26] MEDS: Enoxaparin 40 MG/0.4 ML Syringe SUBCUT SCH (08:47)
[2022-01-26] MEDS: Sodium Chloride 0.9% 10 ML Syringe FLUSH PRN ×4 (13:39→21:13)
[2022-01-26] MEDS ORDERED: 50% Dextrose in Water 50 ML Syringe IVPUSH PRN (16:46)
[2022-01-26] MEDS ORDERED: Glucagon,Human Recombinant 1 MG Vial IM PRN (16:46)
[2022-01-26] MEDS ORDERED: Insulin Lispro 100 Units/ML 3 ML Vial SUBCUT ONE (16:46)
[2022-01-26] MEDS: Naproxen 250 MG Tab PO PRN (16:53)
[2022-01-26] MEDS: cefTRIAXone 2 GM in Sodium Chloride 0.9% 100 ML IV SCH (16:59)
[2022-01-26] MEDS: Thiamine 100 MG Tab PO SCH (21:09)
[2022-01-26] MEDS: Folic Acid 1 MG Tab PO SCH (21:09)
[2022-01-26] MEDS: Multivitamin, Childrens Tab.Chew PO SCH (21:09)
[2022-01-26] MEDS: Aspirin 81 MG Tab.Chew PO SCH (21:10)
[2022-01-26] MEDS: Melatonin 3 MG Tab PO PRN (21:10)
[2022-01-27] MEDS: Naproxen 250 MG Tab PO PRN ×2 (06:17→20:09)
[2022-01-27] MEDS: Morphine 2 MG/ML SYRINGE IVPUSH PRN ×2 (06:19→15:16)
[2022-01-27] MEDS ORDERED: Vancomycin 500 MG SDV ONE (06:42)
[2022-01-27] MEDS ORDERED: Vancomycin 1 GM SDV ONE (06:42)
[2022-01-27 07:17] LABS: ANION GAP 12.2 mEq/L (7-13)
[2022-01-27] MEDS: Sodium Chloride 0.9% 10 ML Syringe FLUSH PRN ×2 (08:53→15:17)
[2022-01-27] MEDS: Escitalopram 10 MG Tab PO SCH (08:58)
[2022-01-27] MEDS: Metoprolol Tartrate 50 MG Tab PO SCH (08:59)
[2022-01-27] MEDS: Lisinopril 20 MG Tab PO SCH (08:59)
[2022-01-27] MEDS: Pantoprazole 40 MG Tab.CR PO SCH (08:59)
[2022-01-27] MEDS: Enoxaparin 40 MG/0.4 ML Syringe SUBCUT SCH (09:01)
[2022-01-27] MEDS: Insulin Lispro 100 Units/ML 3 ML Vial SUBCUT SCH ×4 (10:34→12:30)
[2022-01-27] MEDS: Insulin Glarg,Human.Rec.Analog 100 Unit/ML SUBCUT SCH (10:36)
[2022-01-27] MEDS: oxyCODONE 5 MG Tab PO PRN ×2 (11:40→18:03)
[2022-01-27] MEDS ORDERED: Insulin Lispro 100 Units/ML 3 ML Vial SUBCUT SCH ×2 (16:00→17:00)
[2022-01-27] MEDS: Aspirin 81 MG Tab.Chew PO SCH (20:09)
[2022-01-27] MEDS: Multivitamin, Childrens Tab.Chew PO SCH (20:09)
[2022-01-27] MEDS: Folic Acid 1 MG Tab PO SCH (20:09)
[2022-01-27] MEDS: Thiamine 100 MG Tab PO SCH (20:09)
[2022-01-28] MEDS: Morphine 2 MG/ML SYRINGE IVPUSH PRN ×3 (00:30→21:56)
[2022-01-28 07:52] LABS: ANION GAP 11.2 mEq/L (7-13)
[2022-01-28] MEDS: Metoprolol Tartrate 50 MG Tab PO SCH (08:31)
[2022-01-28] MEDS: Escitalopram 10 MG Tab PO SCH (08:31)
[2022-01-28] MEDS: Lisinopril 20 MG Tab PO SCH (08:32)
[2022-01-28] MEDS: Pantoprazole 40 MG Tab.CR PO SCH (08:33)
[2022-01-28] MEDS: Metoprolol Succinate 50 MG Tab.ER PO SCH (08:33)
[2022-01-28] MEDS: Enoxaparin 40 MG/0.4 ML Syringe SUBCUT SCH (08:33)
[2022-01-28] MEDS: Insulin Glarg,Human.Rec.Analog 100 Unit/ML SUBCUT SCH (08:34)
[2022-01-28] MEDS: Formoterol/Mometasone 200-5 MCG 8.8 GM Inhaler IH SCH ×2 (08:35→21:55)
[2022-01-28] MEDS: Insulin Lispro 100 Units/ML 3 ML Vial SUBCUT SCH ×3 (08:36→17:51)
[2022-01-28] MEDS: Naproxen 250 MG Tab PO PRN ×2 (08:59→21:53)
[2022-01-28] MEDS: EMPAGLIFLOZIN 10 MG PO SCH (10:42)
[2022-01-28] MEDS: Sodium Chloride 0.9% 10 ML Syringe FLUSH PRN (14:50)
[2022-01-28] MEDS: oxyCODONE 5 MG Tab PO PRN (17:54)
[2022-01-28] MEDS: Thiamine 100 MG Tab PO SCH (21:54)
[2022-01-28] MEDS: Melatonin 3 MG Tab PO PRN (21:54)
[2022-01-28] MEDS: Folic Acid 1 MG Tab PO SCH (21:54)
[2022-01-28] MEDS: Multivitamin, Childrens Tab.Chew PO SCH (21:54)
[2022-01-28] MEDS: Mirtazapine 15 MG Tab PO SCH (21:54)
[2022-01-28] MEDS: Aspirin 81 MG Tab.Chew PO SCH (21:55)
[2022-01-29 07:13] LABS: ANION GAP 11.3 mEq/L (7-13)
[2022-01-29] MEDS: Sodium Chloride 0.9% 10 ML Syringe FLUSH PRN (07:46)
[2022-01-29] MEDS: Insulin Lispro 100 Units/ML 3 ML Vial SUBCUT SCH ×3 (08:26→17:34)
[2022-01-29] MEDS: Formoterol/Mometasone 200-5 MCG 8.8 GM Inhaler IH SCH ×2 (08:27→22:04)
[2022-01-29] MEDS: EMPAGLIFLOZIN 10 MG PO SCH (08:27)
[2022-01-29] MEDS: Escitalopram 10 MG Tab PO SCH (08:27)
[2022-01-29] MEDS: Metoprolol Succinate 50 MG Tab.ER PO SCH (08:28)
[2022-01-29] MEDS: Lisinopril 20 MG Tab PO SCH (08:28)
[2022-01-29] MEDS: Pantoprazole 40 MG Tab.CR PO SCH (08:29)
[2022-01-29] MEDS: Insulin Glarg,Human.Rec.Analog 100 Unit/ML SUBCUT SCH (08:29)
[2022-01-29] MEDS: Enoxaparin 40 MG/0.4 ML Syringe SUBCUT SCH (08:29)
[2022-01-29] MEDS ORDERED: oxyCODONE 5 MG Tab PO ONE (14:00)
[2022-01-29] MEDS: oxyCODONE 5 MG Tab PO PRN (19:07)
[2022-01-29] MEDS ORDERED: Ketorolac 30 MG/ML SDV IVPUSH ONE (21:41)
[2022-01-29] MEDS: Thiamine 100 MG Tab PO SCH (22:03)
[2022-01-29] MEDS: Folic Acid 1 MG Tab PO SCH (22:03)
[2022-01-29] MEDS: Mirtazapine 15 MG Tab PO SCH (22:03)
[2022-01-29] MEDS: Multivitamin, Childrens Tab.Chew PO SCH (22:03)
[2022-01-29] MEDS: Aspirin 81 MG Tab.Chew PO SCH (22:04)
[2022-01-29] MEDS: Naproxen 250 MG Tab PO PRN (22:04)
[2022-01-29] MEDS: Morphine 2 MG/ML SYRINGE IVPUSH PRN (22:05)
[2022-01-30 07:31] VITALS: BP 116/70; PULSE 71
[2022-01-30] MEDS: Formoterol/Mometasone 200-5 MCG 8.8 GM Inhaler IH SCH (08:34)
[2022-01-30] MEDS: Insulin Lispro 100 Units/ML 3 ML Vial SUBCUT SCH ×2 (08:35→12:05)
[2022-01-30] MEDS: Pantoprazole 40 MG Tab.CR PO SCH (08:37)
[2022-01-30] MEDS: EMPAGLIFLOZIN 10 MG PO SCH (08:37)
[2022-01-30] MEDS: Lisinopril 20 MG Tab PO SCH (08:37)
[2022-01-30] MEDS: Escitalopram 10 MG Tab PO SCH (08:37)
[2022-01-30] MEDS: Metoprolol Succinate 50 MG Tab.ER PO SCH (08:38)
[2022-01-30] MEDS: Enoxaparin 40 MG/0.4 ML Syringe SUBCUT SCH (08:38)
[2022-01-30] MEDS: Insulin Glarg,Human.Rec.Analog 100 Unit/ML SUBCUT SCH (08:40)
[2022-01-30] MEDS ORDERED: Pneumococcal 20-Valent Conjug 0.5 ML Syringe IM ONE (09:58)
[2022-01-30] MEDS: oxyCODONE 5 MG Tab PO PRN (11:37)
== END 2022-01-30 11:55 | disposition home or self-care (01) ==
LOC: DL.ED 12:30 → UNDOADMOB 15:34 → DL.MS 15:34 → OBSVTOIN 16:48 → INTOOBSV 16:48 → UNDODISOB 01-30 11:55
PROVIDERS: ADMIT Internal Medicine; ATTEND Internal Medicine
DX: L03.116 Cellulitis of left lower limb (principal); L03.114 Cellulitis of left upper limb; L02.416 Cutaneous abscess of left lower limb; A41.9 Sepsis, unspecified organism; B95.62 Methicillin resistant Staphylococcus aureus infection as the cause of diseases classified elsewhere; R74.01 Elevation of levels of liver transaminase levels; R79.1 Abnormal coagulation profile; I10 Essential (primary) hypertension; E11.65 Type 2 diabetes mellitus with hyperglycemia; E88.09 Other disorders of plasma-protein metabolism, not elsewhere classified; E11.40 Type 2 diabetes mellitus with diabetic neuropathy, unspecified; K86.0 Alcohol-induced chronic pancreatitis; J44.9 Chronic obstructive pulmonary disease, unspecified; F10.10 Alcohol abuse, uncomplicated; F12.10 Cannabis abuse, uncomplicated; F41.9 Anxiety disorder, unspecified; F11.20 Opioid dependence, uncomplicated; G89.29 Other chronic pain; Z79.4 Long term (current) use of insulin; Z79.82 Long term (current) use of aspirin; Z88.0 Allergy status to penicillin; Z98.890 Other specified postprocedural states; Z79.899 Other long term (current) drug therapy; Z88.1 Allergy status to other antibiotic agents; Z87.891 Personal history of nicotine dependence; Z20.822 Contact with and (suspected) exposure to COVID-19
CPT/HCPCS: 0240U; 36410; 36415; 71045; 71260; 73200; 73201; 80053; 80202; 80305; 80307; 81001; 82947; 83036; 83605; 83735; 84100; 84145; 84484; 85025; 85379; 85651; 86140; 87040; 87070; 87077; 87081; 87186; 87205; 90677; 93005; 93970; 93971; 97110; 97140; 97165; A9270; J0696; J1650; J1815; J1885; J2270; J3370; J3490; J7040; J7050; J7120; Q9967; 96365; 96366; 99217; 99220; 99225; 99285-25; G0009

== ENCOUNTER 2023-06-27 07:18 | Emergency (ER) | payer SELFPAY ==
[2023-06-27] MEDS ORDERED: Sodium Chloride 0.9% 10 ML Syringe FLUSH PRN (07:30)
[2023-06-27 07:46] LABS: BASOPHILS PERCENT AUTO 0.2 % (0.0-1.0); EOSINOPHILS PERCENT AUTO 4.6 % (1.0-3.0); HEMATOCRIT 39.4 % (40.0-54.0); HEMOGLOBIN 13.9 g/dL (14.0-18.0); LYMPHOCYTES PERCENT AUTO 23.3 % (20.5-50.1); MEAN CORPUSCULAR HEMOGLOBIN 30.5 pg (27.0-34.0); MEAN CORPUSCULAR HGB CONC 35.3 g/dL (33.0-35.0); MEAN CORPUSCULAR VOLUME 86.6 fL (80-100); MONOCYTES PERCENT AUTO 12.9 % (2-8); PLATELET COUNT,PLT 271 10^3/uL (150-450); RED BLOOD CELL COUNT 4.55 10^6/uL (4.6-6.2); WHITE BLOOD CELL COUNT,WBC 10.2 10^3/uL (5.0-10.0)
[2023-06-27] MEDS ORDERED: Clindamycin in 0.9 % Sod Chlor 600 MG in Premix Bag 1 BAG IV ONE ×2 (07:54)
[2023-06-27 07:58] VITALS: BP 142/96; PULSE 101
[2023-06-27 08:01] LABS: CALCIUM 7.8 mg/dL (8.5-10.1); CREATININE 0.69 mg/dL (0.70-1.30); EST CRCL DRUG DOSING (CG) 170.48 mL/min
[2023-06-27] MEDS ORDERED: Sodium Chloride 0.9% 1,000 ML IV ONE (08:20)
[2023-06-27] MEDS ORDERED: Insulin Lispro 100 Units/ML 3 ML Vial SUBCUT ONE (08:22)
== END 2023-06-27 09:02 | disposition home or self-care (01) ==
LOC: DL.ED 07:18
DX: L02.413 Cutaneous abscess of right upper limb (principal); I10 Essential (primary) hypertension; K21.9 Gastro-esophageal reflux disease without esophagitis; E11.9 Type 2 diabetes mellitus without complications; Z88.0 Allergy status to penicillin; Z88.8 Allergy status to other drugs, medicaments and biological substances; Z86.16 Personal history of COVID-19; Z90.49 Acquired absence of other specified parts of digestive tract; Z79.4 Long term (current) use of insulin; Z79.899 Other long term (current) drug therapy
CPT/HCPCS: 36415; 80048; 85025; 87070; 87077; 87186; 96361; 96365; 99283; J1815; J3490; J7030

== ENCOUNTER 2023-09-06 21:54 | Emergency (ER) | payer SELFPAY ==
[2023-09-06] MEDS: Albuterol/Ipratropium 3.0-0.5 MG/3 ML Neb Soln NEB ONE (22:19)
[2023-09-06 22:39] VITALS: BP 126/78
[2023-09-06 22:41] VITALS: PULSE 113
[2023-09-06 22:53] LABS: CORONAVIRUS COVID-19 NAA NEGATIVE (NEGATIVE); INFLUENZA A NAA NEGATIVE (NEGATIVE); INFLUENZA B NAA NEGATIVE (NEGATIVE); RESPIRATORY SYNCYTIAL VIR NAA POSITIVE (NEGATIVE)
[2023-09-06] MEDS: Dexamethasone 4 MG/ML SDV IVPUSH ONE (23:04)
[2023-09-06] MEDS: guaiFENesin 100 MG/5 ML Soln 5 ML UD Cup PO ONE (23:05)
== END 2023-09-06 23:15 | disposition home or self-care (01) ==
LOC: DL.ED 21:54
DX: R05.9 Cough, unspecified (principal); B97.4 Respiratory syncytial virus as the cause of diseases classified elsewhere; I10 Essential (primary) hypertension; J45.909 Unspecified asthma, uncomplicated; K21.9 Gastro-esophageal reflux disease without esophagitis; E10.9 Type 1 diabetes mellitus without complications; Z79.51 Long term (current) use of inhaled steroids; Z79.899 Other long term (current) drug therapy; Z88.1 Allergy status to other antibiotic agents; Z88.8 Allergy status to other drugs, medicaments and biological substances; Z88.0 Allergy status to penicillin; Z79.4 Long term (current) use of insulin; Z86.16 Personal history of COVID-19
CPT/HCPCS: 0241U; 71046; 96374; 99284; A9270; J1100; J7620-GY

== ENCOUNTER 2024-02-20 15:21 | Emergency (ER) | payer MEDICAID, OTHER ==
[2024-02-20] MEDS ORDERED: Sodium Chloride 0.9% 10 ML Syringe FLUSH PRN (15:58)
[2024-02-20 16:04] LABS: BASOPHILS PERCENT AUTO 0.1 % (0.0-1.0); EOSINOPHILS PERCENT AUTO 0.1 % (1.0-3.0); HEMATOCRIT 37.7 % (40.0-54.0); HEMOGLOBIN 13.1 g/dL (14.0-18.0); LYMPHOCYTES PERCENT AUTO 15.7 % (20.5-50.1); MEAN CORPUSCULAR HEMOGLOBIN 29.8 pg (27.0-34.0); MEAN CORPUSCULAR HGB CONC 34.7 g/dL (33.0-35.0); MEAN CORPUSCULAR VOLUME 85.9 fL (80-100); MONOCYTES PERCENT AUTO 8.2 % (2-8); NEUTROPHILS PERCENT AUTO 75.9 % (42.2-75.2); PLATELET COUNT,PLT 175 10^3/uL (150-450); RED BLOOD CELL COUNT 4.39 10^6/uL (4.6-6.2); WHITE BLOOD CELL COUNT,WBC 11.4 10^3/uL (5.0-10.0)
[2024-02-20 16:14] VITALS: BP 124/80; PULSE 99
[2024-02-20 16:17] LABS: ANION GAP 13.1 mEq/L (7-13); CALCIUM 8.3 mg/dL (8.5-10.1); CREATININE 0.84 mg/dL (0.70-1.30); EST CRCL DRUG DOSING (CG) 140.04 mL/min; MAGNESIUM 1.7 mg/dL (1.8-2.4); POTASSIUM,K 4.1 mmol/L (3.5-5.1)
[2024-02-20 16:26] LABS: LACTIC ACID 1.5 mmol/L (0.4-2.0)
[2024-02-20] MEDS: Sodium Chloride 0.9% 1,000 ML IV ONE ×2 (16:31→16:58)
[2024-02-20 16:40] LABS: APPEARANCE,URINE CLEAR (CLEAR); BILIRUBIN,URINE NEGATIVE (NEGATIVE); COLOR,URINE YELLOW (YELLOW); GLUCOSE,URINE 500 (NEGATIVE); KETONES,URINE NEGATIVE (NEGATIVE); LEUKOCYTE ESTERASE,URINE NEGATIVE (NEGATIVE); NITRITE,URINE NEGATIVE (NEGATIVE); OCCULT BLOOD,URINE TRACE-INTACT (NEGATIVE); PROTEIN,URINE NEGATIVE (NEGATIVE)
[2024-02-20 16:49] LABS: O2 DELIVERY DEVICE ROOM AIR
[2024-02-20] MEDS: Magnesium Sulfate/Water 2 GM in Premix Bag 1 BAG IV ONE (16:58)
[2024-02-20 17:01] LABS: AMORPHOUS SEDIMENT,URINE OCCASIONAL /HPF (NOT SEEN); BACTERIA,URINE FEW /HPF (0-FEW/HPF); EPITHELIAL CELLS,URINE OCCASIONAL /HPF (NOT SEEN); MUCUS,URINE RARE /LPF (NOT SEEN); RBC,URINE 0-5 /HPF (0-5); WBC,URINE 0-5 /HPF (0-5/HPF)
[2024-02-20 17:08] LABS: BASE EXCESS VENOUS -2.3 mmol/l ((-2)-(+3)); BICARBONATE,VENOUS 22 mmol/l (19-25); O2 SATURATION VENOUS 88.9 % (60-80); PCO2 VENOUS 36 mmHg (41-51); PO2 VENOUS 54 mmHg (35-42)
[2024-02-20] MEDS ORDERED: Glucagon,Human Recombinant 1 MG Vial IM PRN (17:20)
[2024-02-20] MEDS ORDERED: 50% Dextrose in Water 50 ML Syringe IVPUSH PRN (17:20)
[2024-02-20] MEDS: Insulin Lispro 100 Units/ML 3 ML Vial SUBCUT ONE (17:30)
[2024-02-20] MEDS: Ketorolac 30 MG/ML SDV IVPUSH ONE (18:16)
[2024-02-20] MEDS: Acetaminophen 500 MG Tab PO ONE (18:47)
== END 2024-02-20 18:57 | disposition home or self-care (01) ==
LOC: DL.ED 15:21
DX: J06.9 Acute upper respiratory infection, unspecified (principal); R09.1 Pleurisy; I10 Essential (primary) hypertension; E10.9 Type 1 diabetes mellitus without complications; Z88.0 Allergy status to penicillin; Z88.1 Allergy status to other antibiotic agents; Z88.8 Allergy status to other drugs, medicaments and biological substances; Z79.899 Other long term (current) drug therapy; Z86.16 Personal history of COVID-19; Z90.49 Acquired absence of other specified parts of digestive tract
CPT/HCPCS: 36415; 71046; 80048; 81001; 82009; 82803; 82947; 83605; 83735; 85025; 87635; 87804; 96365; 96375; 99285; A9270; J1815; J1885; J3475; J7030; U0002

== ENCOUNTER 2024-02-21 07:03 | Emergency (ER) | payer OTHER ==
[2024-02-21 07:46] LABS: BASOPHILS PERCENT AUTO 0.1 % (0.0-1.0); EOSINOPHILS PERCENT AUTO 0.1 % (1.0-3.0); HEMATOCRIT 36.7 % (40.0-54.0); HEMOGLOBIN 12.6 g/dL (14.0-18.0); LYMPHOCYTES PERCENT AUTO 16.6 % (20.5-50.1); MEAN CORPUSCULAR HEMOGLOBIN 29.5 pg (27.0-34.0); MEAN CORPUSCULAR HGB CONC 34.3 g/dL (33.0-35.0); MEAN CORPUSCULAR VOLUME 85.9 fL (80-100); MONOCYTES PERCENT AUTO 8.5 % (2-8); NEUTROPHILS PERCENT AUTO 74.7 % (42.2-75.2); PLATELET COUNT,PLT 159 10^3/uL (150-450); RED BLOOD CELL COUNT 4.27 10^6/uL (4.6-6.2)
[2024-02-21] MEDS: methylPREDNISolone Sodium Succinate 125 MG/2 ML SDV IVPUSH ONE (07:46)
[2024-02-21] MEDS: Albuterol/Ipratropium 3.0-0.5 MG/3 ML Neb Soln NEB ONE (07:52)
[2024-02-21 07:53] LABS: APPEARANCE,URINE SLIGHTLY CLOUDY (CLEAR); BILIRUBIN,URINE NEGATIVE (NEGATIVE); COLOR,URINE YELLOW (YELLOW); GLUCOSE,URINE 500 (NEGATIVE); KETONES,URINE 40 (NEGATIVE); LEUKOCYTE ESTERASE,URINE NEGATIVE (NEGATIVE); NITRITE,URINE POSITIVE (NEGATIVE); OCCULT BLOOD,URINE SMALL (NEGATIVE); PROTEIN,URINE 30 (NEGATIVE)
[2024-02-21] MEDS: Iopamidol 755 Mg/ML 100 ML Bottle IVPUSH ONE (07:53)
[2024-02-21 08:00] LABS: O2 DELIVERY DEVICE ROOM AIR
[2024-02-21 08:00] LABS: ALBUMIN 2.5 g/dL (3.4-5.0); ANION GAP 15.7 mEq/L (7-13); BILIRUBIN TOTAL 0.6 mg/dL (0.2-1.0); BUN/CREATININE RATIO 14.5 (No establ ref range); CALCIUM 7.9 mg/dL (8.5-10.1); CREATININE 0.76 mg/dL (0.70-1.30); EST CRCL DRUG DOSING (CG) 154.78 mL/min; MAGNESIUM 1.7 mg/dL (1.8-2.4); POTASSIUM,K 3.7 mmol/L (3.5-5.1); PROTEIN TOTAL,TP 6.5 g/dL (6.4-8.2)
[2024-02-21 08:01] LABS: RBC,URINE 0-5 /HPF (0-5)
[2024-02-21 08:02] LABS: AMORPHOUS SEDIMENT,URINE RARE /HPF (NOT SEEN); BACTERIA,URINE MANY /HPF (0-FEW/HPF); EPITHELIAL CELLS,URINE FEW /HPF (NOT SEEN); MUCUS,URINE RARE /LPF (NOT SEEN)
[2024-02-21 08:03] LABS: LACTIC ACID 1.5 mmol/L (0.4-2.0)
[2024-02-21 08:07] LABS: BASE EXCESS VENOUS -2.8 mmol/l ((-2)-(+3)); BICARBONATE,VENOUS 21 mmol/l (19-25); O2 SATURATION VENOUS 85.1 % (60-80); PCO2 VENOUS 35 mmHg (41-51); PO2 VENOUS 49 mmHg (35-42)
[2024-02-21 08:15] LABS: A/G RATIO 0.63
[2024-02-21] MEDS: Sodium Chloride 0.9% 1,000 ML IV ONE ×2 (08:29→09:02)
[2024-02-21] MEDS: Levofloxacin/Dextrose 5%-Water 750 MG in Premix Bag 1 BAG IV ONE (08:46)
[2024-02-21] MEDS: Magnesium Sulfate/Water 2 GM in Premix Bag 1 BAG IV ONE (08:51)
[2024-02-21] MEDS: Sodium Chloride 0.9% 670 ML IV ONE (11:06)
[2024-02-21] MEDS: Ketorolac 30 MG/ML SDV IVPUSH ONE (14:07)
[2024-02-21 15:48] VITALS: PULSE 95
[2024-02-21 17:11] VITALS: BP 114/74
[2024-02-24 12:48] LABS: QNTIFERON MITOGEN MIN NIL 4.77 IU/mL; QNTIFERON NIL 0.08 IU/mL; QNTIFERON PLUS TB1 MINUS NIL 0.01 IU/mL (<=0.34); QNTIFERON PLUS TB2 MINUS NIL 0.01 IU/mL (<=0.34); QNTIFERON TB GOLD PLUS Negative (Negative)
== END 2024-02-21 17:14 ==
LOC: DL.ED 07:03
DX: R91.1 Solitary pulmonary nodule (principal); E10.21 Type 1 diabetes mellitus with diabetic nephropathy; I10 Essential (primary) hypertension; Z88.1 Allergy status to other antibiotic agents; Z88.0 Allergy status to penicillin; Z88.8 Allergy status to other drugs, medicaments and biological substances; Z79.4 Long term (current) use of insulin; Z79.899 Other long term (current) drug therapy; Z79.51 Long term (current) use of inhaled steroids
CPT/HCPCS: 36415; 71275; 80053; 81001; 82009; 82803; 82947; 83605; 83735; 84484; 85025; 86480; 87040; 87086; 93005; 96365; 96366; 96368; 96375; 99285; J1885; J1956; J2919; J3475; J7030; Q9967; 87088; 87186; J7620-GY

== ENCOUNTER 2024-09-07 03:23 | Emergency (ER) | payer OTHER, MEDICAID ==
[2024-09-07 03:32] VITALS: BP 115/73; PULSE 96
[2024-09-07] MEDS: Azithromycin 250 MG Tab PO ONE (03:42)
[2024-09-07] MEDS: predniSONE 20 MG Tab PO ONE (03:42)
== END 2024-09-07 03:52 | disposition home or self-care (01) ==
LOC: DL.ED 03:23
DX: J40 Bronchitis, not specified as acute or chronic (principal); I10 Essential (primary) hypertension; J45.909 Unspecified asthma, uncomplicated; E10.21 Type 1 diabetes mellitus with diabetic nephropathy; Z88.0 Allergy status to penicillin; Z88.1 Allergy status to other antibiotic agents; Z79.4 Long term (current) use of insulin; Z79.899 Other long term (current) drug therapy
CPT/HCPCS: 99284; A9270; J7512

== ENCOUNTER 2024-11-20 17:33 | Emergency (ER) | payer OTHER, MEDICAID ==
[2024-11-20] MEDS: Sodium Chloride 0.9% 1,000 ML IV ONE (17:30)
[2024-11-20 17:32] VITALS: BP 137/80; PULSE 93
[~2024-11-20 17:33] MED LIST: Sodium Chloride 0.9% 10 ML Syringe FLUSH PRN
[2024-11-20 17:35] LABS: BASOPHILS PERCENT AUTO 0.2 % (0.0-1.0); EOSINOPHILS PERCENT AUTO 3.7 % (1.0-3.0); HEMATOCRIT 39.2 % (40.0-54.0); HEMOGLOBIN 13.3 g/dL (14.0-18.0); LYMPHOCYTES PERCENT AUTO 46.2 % (20.5-50.1); MEAN CORPUSCULAR HEMOGLOBIN 30.2 pg (27.0-34.0); MEAN CORPUSCULAR HGB CONC 33.9 g/dL (33.0-35.0); MEAN CORPUSCULAR VOLUME 89.1 fL (80-100); MONOCYTES PERCENT AUTO 7.7 % (2-8); NEUTROPHILS PERCENT AUTO 42.2 % (42.2-75.2); PLATELET COUNT,PLT 215 10^3/uL (150-450); WHITE BLOOD CELL COUNT,WBC 6.2 10^3/uL (5.0-10.0)
[2024-11-20 17:37] LABS: O2 DELIVERY DEVICE ROOM AIR
[2024-11-20 17:55] LABS: BICARBONATE,VENOUS 23 mmol/l (19-25); O2 SATURATION VENOUS 93.8 % (60-80); PCO2 VENOUS 47 mmHg (41-51); PH,VENOUS 7.31 (7.31-7.41); PO2 VENOUS 83 mmHg (35-42)
[2024-11-20 18:01] LABS: LACTIC ACID 4.3 mmol/L (0.4-2.0)
[2024-11-20 18:04] LABS: ALANINE AMINOTRANSFERASE,ALT 28 U/L (16-63); ALBUMIN 3.1 g/dL (3.4-5.0); ALKALINE PHOSPHATASE 144 U/L (46-116); ANION GAP 11.9 mEq/L (7-13); ASPARTATE AMNIOTRANSFERASE,AST 10 U/L (15-37); BILIRUBIN TOTAL 0.3 mg/dL (0.2-1.0); BLOOD UREA NITROGEN,BUN 14 mg/dL (7-18); BUN/CREATININE RATIO 11.8 (No establ ref range); CALCIUM 8.5 mg/dL (8.5-10.1); CARBON DIOXIDE,CO2 25 mmol/L (21-32); CHLORIDE,CL 98 mmol/L (98-107); CREATININE 1.19 mg/dL (0.70-1.30); EST CRCL DRUG DOSING (CG) 97.92 mL/min; MAGNESIUM 1.8 mg/dL (1.8-2.4); POTASSIUM,K 3.9 mmol/L (3.5-5.1); PROTEIN TOTAL,TP 6.4 g/dL (6.4-8.2); SODIUM,NA 131 mmol/L (136-145)
[2024-11-20 18:05] LABS: A/G RATIO 0.94; C-REACTIVE PROTEIN < 0.50 ng/dL (<=0.50); ESTIMATED GFR 82 mL/min (>=60); ETHANOL BLOOD MEDICAL < 3 mg/dL (0)
[2024-11-20 18:06] LABS: GLUCOSE RANDOM 602 mg/dL (70-99)
[2024-11-20] MEDS ORDERED: Glucagon,Human Recombinant 1 MG Vial IM PRN (18:06)
[2024-11-20] MEDS ORDERED: 50% Dextrose in Water 50 ML Syringe IVPUSH PRN (18:06)
[2024-11-20 18:13] LABS: KETONES,BLOOD NEGATIVE
[2024-11-20] MEDS: Insulin Regular, Human 100 Units/ML 10 ML Vial IV ONE (18:14)
== END 2024-11-20 19:21 | disposition home or self-care (01) ==
LOC: DL.ED 17:33
DX: E11.65 Type 2 diabetes mellitus with hyperglycemia (principal); E11.40 Type 2 diabetes mellitus with diabetic neuropathy, unspecified; I10 Essential (primary) hypertension; J45.909 Unspecified asthma, uncomplicated; Z88.0 Allergy status to penicillin; Z88.1 Allergy status to other antibiotic agents; Z79.4 Long term (current) use of insulin; Z79.51 Long term (current) use of inhaled steroids; Z79.899 Other long term (current) drug therapy
CPT/HCPCS: 36415; 80053; 80307; 82009; 82803; 82947; 83605; 83735; 85025; 86140; 87040; 96360; 99285; A9270; J7030; 99283

== ENCOUNTER 2024-12-21 19:46 | Emergency (ER) | payer OTHER, MEDICAID ==
[2024-12-21 20:02] VITALS: BP 115/76; PULSE 96
[2024-12-21] MEDS: Bacitracin Oint 1 GM U/D Packet TOP ONE (20:31)
[2024-12-21] MEDS: Dexamethasone 6 MG TABLET PO ONE (20:31)
[2024-12-21] MEDS: Pseudoephedrine 30 MG Tab PO ONE (20:31)
== END 2024-12-21 20:42 | disposition home or self-care (01) ==
LOC: DL.ED 19:46
DX: H69.81 Other specified disorders of Eustachian tube, right ear (principal); I13.2 Hypertensive heart and chronic kidney disease with heart failure and with stage 5 chronic kidney disease, or end stage renal disease; N18.6 End stage renal disease; I50.9 Heart failure, unspecified; E10.22 Type 1 diabetes mellitus with diabetic chronic kidney disease; J44.89 Other specified chronic obstructive pulmonary disease; E78.00 Pure hypercholesterolemia, unspecified; F17.210 Nicotine dependence, cigarettes, uncomplicated; Z86.16 Personal history of COVID-19; Z99.2 Dependence on renal dialysis; Z88.0 Allergy status to penicillin; Z88.1 Allergy status to other antibiotic agents; Z88.8 Allergy status to other drugs, medicaments and biological substances; Z79.4 Long term (current) use of insulin; Z79.899 Other long term (current) drug therapy
CPT/HCPCS: 99282; A9270-GY; J8540

== ENCOUNTER 2024-12-24 22:11 | Emergency (ER) | payer OTHER, MEDICAID ==
[2024-12-24] MEDS: Take Home: Clindamycin HCl 150 MG, 12 Cap Pack PO ONE (22:54)
[2024-12-24] MEDS: Ketorolac 30 MG/ML SDV IM ONE (22:55)
[2024-12-24] MEDS: Mupirocin Oint 22 GM Tube TOP ONE (22:55)
[2024-12-24] MEDS: Pseudoephedrine 30 MG Tab PO ONE (22:56)
[2024-12-24 23:15] VITALS: BP 138/90; PULSE 102
== END 2024-12-24 23:02 | disposition home or self-care (01) ==
LOC: DL.ED 22:11
DX: K04.7 Periapical abscess without sinus (principal); I10 Essential (primary) hypertension; J45.909 Unspecified asthma, uncomplicated; E10.21 Type 1 diabetes mellitus with diabetic nephropathy; Z86.16 Personal history of COVID-19; Z88.0 Allergy status to penicillin; Z88.1 Allergy status to other antibiotic agents; Z79.4 Long term (current) use of insulin; Z79.899 Other long term (current) drug therapy; Z79.51 Long term (current) use of inhaled steroids
CPT/HCPCS: 96372; 99282; A9270; J1885

== ENCOUNTER 2025-03-08 16:45 | Emergency (ER) | payer OTHER, MEDICAID ==
[2025-03-08] MEDS ORDERED: Sodium Chloride 0.9% 10 ML Syringe FLUSH PRN (17:20)
[2025-03-08 17:36] LABS: BASOPHILS PERCENT AUTO 0.3 % (0.0-1.0); EOSINOPHILS PERCENT AUTO 5.0 % (1.0-3.0); LYMPHOCYTES PERCENT AUTO 44.1 % (20.5-50.1); MONOCYTES PERCENT AUTO 7.1 % (2-8); NEUTROPHILS PERCENT AUTO 43.5 % (42.2-75.2); PLATELET COUNT,PLT 261 10^3/uL (150-450); RED BLOOD CELL COUNT 5.00 10^6/uL (4.6-6.2); WHITE BLOOD CELL COUNT,WBC 6.2 10^3/uL (5.0-10.0)
[2025-03-08 17:49] LABS: BLOOD UREA NITROGEN,BUN 12 mg/dL (7-18); CARBON DIOXIDE,CO2 27 mmol/L (21-32); CHLORIDE,CL 97 mmol/L (98-107); CREATININE 1.05 mg/dL (0.70-1.30); POTASSIUM,K 4.1 mmol/L (3.5-5.1); PROTEIN TOTAL,TP 8.6 g/dL (6.4-8.2); SODIUM,NA 135 mmol/L (136-145)
[2025-03-08 17:50] LABS: A/G RATIO 1.0; ALANINE AMINOTRANSFERASE,ALT 49 U/L (16-63); ASPARTATE AMNIOTRANSFERASE,AST 28 U/L (15-37); BILIRUBIN TOTAL 0.5 mg/dL (0.2-1.0); ESTIMATED GFR 95 mL/min (>=60)
[2025-03-08 17:51] LABS: GLUCOSE RANDOM 444 mg/dL (70-99)
[2025-03-08] MEDS ORDERED: 50% Dextrose in Water 50 ML Syringe IVPUSH PRN (17:52)
[2025-03-08 18:10] VITALS: BP 146/96; PULSE 113
[2025-03-08] MEDS: Lactated Ringers 1,000 ML IV ONE ×2 (18:21)
== END 2025-03-08 20:05 | disposition home or self-care (01) ==
LOC: DL.ED 16:45
DX: R19.7 Diarrhea, unspecified (principal); I10 Essential (primary) hypertension; E10.9 Type 1 diabetes mellitus without complications; J45.909 Unspecified asthma, uncomplicated; Z79.899 Other long term (current) drug therapy; Z79.51 Long term (current) use of inhaled steroids; Z79.4 Long term (current) use of insulin; Z88.0 Allergy status to penicillin; Z88.1 Allergy status to other antibiotic agents; Z86.16 Personal history of COVID-19; Z90.49 Acquired absence of other specified parts of digestive tract
CPT/HCPCS: 36415; 80053; 82947; 83690; 85025; 96360; 99284; A9270; J1815; J7120; 93010; 99283

== ENCOUNTER 2025-03-27 19:00 | Emergency (ER) | payer OTHER, MEDICAID ==
[2025-03-27 19:41] LABS: O2 DELIVERY DEVICE ROOM AIR
[2025-03-27 19:44] LABS: BASOPHILS PERCENT AUTO 0.1 % (0.0-1.0); EOSINOPHILS PERCENT AUTO 0.1 % (1.0-3.0); LYMPHOCYTES PERCENT AUTO 7.1 % (20.5-50.1); MONOCYTES PERCENT AUTO 6.4 % (2-8); NEUTROPHILS PERCENT AUTO 86.3 % (42.2-75.2); PLATELET COUNT,PLT 221 10^3/uL (150-450); RED BLOOD CELL COUNT 4.96 10^6/uL (4.6-6.2); WHITE BLOOD CELL COUNT,WBC 19.3 10^3/uL (5.0-10.0)
[2025-03-27 19:47] LABS: BASE EXCESS VENOUS -1.7 mmol/l ((-2)-(+3)); BICARBONATE,VENOUS 25 mmol/l (19-25); O2 SATURATION VENOUS 26.3 % (60-80); PCO2 VENOUS 49 mmHg (41-51); PH,VENOUS 7.32 (7.31-7.41); PO2 VENOUS 31 mmHg (35-42)
[2025-03-27] MEDS: Thiamine 100 MG in Sodium Chloride 0.9% 1,000 ML IV ONE (19:55)
[2025-03-27 20:06] LABS: A/G RATIO 0.9; ALANINE AMINOTRANSFERASE,ALT 42 U/L (16-63); ASPARTATE AMNIOTRANSFERASE,AST 22 U/L (15-37); BILIRUBIN TOTAL 0.9 mg/dL (0.2-1.0); BLOOD UREA NITROGEN,BUN 15 mg/dL (7-18); CARBON DIOXIDE,CO2 27 mmol/L (21-32); CHLORIDE,CL 95 mmol/L (98-107); CREATININE 0.89 mg/dL (0.70-1.30); EST CRCL DRUG DOSING (CG) 130.92 mL/min; GLUCOSE RANDOM 316 mg/dL (70-99); POTASSIUM,K 4.3 mmol/L (3.5-5.1); PROTEIN TOTAL,TP 8.2 g/dL (6.4-8.2); SODIUM,NA 132 mmol/L (136-145)
[2025-03-27 20:07] LABS: ESTIMATED GFR 115 mL/min (>=60); ETHANOL BLOOD MEDICAL < 3 mg/dL (0)
[2025-03-27 20:08] LABS: LACTIC ACID 3.2 mmol/L (0.4-2.0)
[2025-03-27] MEDS: Iopamidol 612 MG/ML 100 ML Bottle IVPUSH ONE (22:13)
[2025-03-27 22:40] LABS: APPEARANCE,URINE CLEAR (CLEAR); GLUCOSE,URINE 500 (NEGATIVE); OCCULT BLOOD,URINE NEGATIVE (NEGATIVE)
[2025-03-27 23:00] LABS: AMPHETAMINES,URINE NEGATIVE (NEGATIVE); BARBITURATES,URINE NEGATIVE (NEGATIVE); MDMA (ECSTASY), URINE NEGATIVE (NEGATIVE); METHAMPHETAMINES,URINE POSITIVE (NEGATIVE); OPIATES,URINE NEGATIVE (NEGATIVE); OXYCODONE,URINE NEGATIVE (NEGATIVE); PHENCYCLIDINE,URINE NEGATIVE (NEGATIVE); TCA,URINE NEGATIVE (NEGATIVE)
[2025-03-28] MEDS: Ketorolac 30 MG/ML SDV IVPUSH ONE (00:14)
[2025-03-28 00:15] LABS: LACTIC ACID 1.4 mmol/L (0.4-2.0)
[2025-03-28 06:26] LABS: PLATELET COUNT,PLT 199 10^3/uL (150-450); RED BLOOD CELL COUNT 4.29 10^6/uL (4.6-6.2); WHITE BLOOD CELL COUNT,WBC 25.7 10^3/uL (5.0-10.0)
[2025-03-28 06:30] LABS: BASOPHILS PERCENT AUTO 0.1 % (0.0-1.0); EOSINOPHILS PERCENT AUTO 0.0 % (1.0-3.0); LYMPHOCYTES PERCENT AUTO 9.1 % (20.5-50.1); MONOCYTES PERCENT AUTO 5.3 % (2-8); NEUTROPHILS PERCENT AUTO 85.5 % (42.2-75.2)
[2025-03-28 06:53] LABS: ALANINE AMINOTRANSFERASE,ALT 34.0 U/L (16-63); ASPARTATE AMNIOTRANSFERASE,AST 19.0 U/L (15-37); BILIRUBIN TOTAL 1.0 mg/dL (0.2-1.0); BLOOD UREA NITROGEN,BUN 16.0 mg/dL (7-18); CARBON DIOXIDE,CO2 21.0 mmol/L (21-32); CHLORIDE,CL 102.0 mmol/L (98-107); CREATININE 0.76 mg/dL (0.70-1.30); EST CRCL DRUG DOSING (CG) 153.32 mL/min; GLUCOSE RANDOM 214.0 mg/dL (70-99); POTASSIUM,K 4.1 mmol/L (3.5-5.1); PROTEIN TOTAL,TP 6.8 g/dL (6.4-8.2); SODIUM,NA 137.0 mmol/L (136-145)
[2025-03-28 06:55] LABS: A/G RATIO 0.74; ESTIMATED GFR 120.0 mL/min (>=60)
[2025-03-28 07:55] LABS: LYMPHOCYTES PERCENT MAN 12 % (20-50); MONOCYTES PERCENT MAN 4 % (2-8); SEG NEUTROPHILS PERCENT MAN 84 % (42-75)
[2025-03-28] MEDS: Ketorolac 30 MG/ML SDV IM ONE (07:59)
[2025-03-28 11:44] VITALS: BP 92/66; PULSE 101
== END 2025-03-28 11:46 ==
LOC: DL.ED 19:00
DX: J18.9 Pneumonia, unspecified organism (principal); F12.90 Cannabis use, unspecified, uncomplicated; Z53.20 Procedure and treatment not carried out because of patient's decision for unspecified reasons; Z88.0 Allergy status to penicillin; Z88.1 Allergy status to other antibiotic agents; Z79.4 Long term (current) use of insulin; Z79.84 Long term (current) use of oral hypoglycemic drugs; Z79.899 Other long term (current) drug therapy; I10 Essential (primary) hypertension; E10.42 Type 1 diabetes mellitus with diabetic polyneuropathy; E10.21 Type 1 diabetes mellitus with diabetic nephropathy; Z86.16 Personal history of COVID-19; J45.909 Unspecified asthma, uncomplicated; F17.210 Nicotine dependence, cigarettes, uncomplicated
CPT/HCPCS: 36415; 71045; 71260; 74177; 80053; 80305; 80307; 81003; 82803; 82947; 83605; 83735; 84484; 85025; 87428; 96361; 96365; 96366; 96367; 96375; 99285; J1885; J2543; J3373; J3411; J7030; J7040; Q9967